=== PATIENT | female | born 1945 | race Two or more races ===

== ENCOUNTER → 2018-07-16 | Outpatient (CLI) | payer MEDICARE ==
[2015-09-06 14:53] VITALS: BP 133/60
[~2018-07-16] MED LIST: ARIP5TAB13 PO; ASCO500T3 PO; ASPI-482 PO; BUPR300T4 PO; CELE200C PO; CHOL500016 PO; CLOP75TA57 PO; CRESTOR20 MG PO; CRESTOR40 MG PO; CYAN10002 IM; DEXL60CA2 PO; DULO60CA6 PO; ESOM20CA PO; ESTR1TAB15 PO; FERR325T14 PO; FEXO180T81 PO; INSU100I13 SQ; LEVO150T5 PO; LISI2.5T PO; METF10007 PO; OMEG1CAP6 PO; PIOG30TA41 PO; RANI150T21 PO; TIZA4TAB PO; TRAZ-86 PO; [UNRECOGNIZED DRUG - CODE]; [UNRECOGNIZED DRUG - OTHER] PO; fiber con; one a day PO; tylenol pm PO
--- NOTE | 2018-07-16 15:13 | RAD ---
CT chest without contrast dated 07/16/2018. No comparison available. CLINICAL INDICATION: Weight loss and dysphagia. TECHNIQUE: Contiguous axial imaging the chest performed without the administration of intravenous contrast. One or more of the following individualized dose reduction techniques were utilized for this examination: 1. Automated exposure control 2. Adjustment of the mA and/or kV according to patient size 3. Use of iterative reconstruction technique. FINDINGS: There is diffuse bronchial wall thickening. Mild to moderate upper zone predominant emphysema. Biapical linear scarring. There is a noncalcified pulmonary nodule in the right upper lobe on image 17 measures 7 mm in size. There is also a noncalcified pulmonary nodule in the medial aspect of the left upper lobe on image 24 that measures 8 mm. Additional soft tissue mass within the medial aspect of the left upper lobe on image 35 measures 2 cm. Noncalcified nodule in the right middle lobe on image 73 measures 4 mm. Heart size within normal limits. Extensive coronary calcifications. Small pericardial effusion. Borderline enlarged subcarinal lymph node measuring 8 mm short axis. There is a possible enlarged right paratracheal lymph node measuring 12 mm short axis. Thyroid gland unremarkable. No definite hilar or axillary adenopathy. Limited images of upper abdomen unremarkable. Slight nodular fullness of the left adrenal gland. No acute bony abnormality. Multilevel spondylosis. IMPRESSION: 1. Soft tissue mass of the medial aspect of the left upper lobe measuring up to 2 cms in size, indeterminate. This could be related to primary bronchogenic malignancy. Suggest PET CT for better evaluation. 2. Additional noncalcified pulmonary nodules in the left upper lobe and right upper lobe and right middle lobe, indeterminate. 3. Mild mediastinal lymphadenopathy. 4. Emphysema. 5. Coronary artery calcifications. 6. Slight nodular fullness of the left adrenal gland. Electronically signed by: Rickie Cervantes MD (07/16/2018 3:10 PM) [facility]
== END | disposition home or self-care (01) ==
LOC: CT 10:05
PROVIDERS: ATTEND Internal Medicine Gastroenterology
DX: J43.8 Other emphysema (principal); J98.4 Other disorders of lung; I31.3 Pericardial effusion (noninflammatory); I25.10 Atherosclerotic heart disease of native coronary artery without angina pectoris; R91.1 Solitary pulmonary nodule; R59.0 Localized enlarged lymph nodes
CPT/HCPCS: 71250

== ENCOUNTER 2018-08-11 19:38 | Emergency (ER) | payer MEDICARE ==
[~2018-08-11] VITALS: Ht 152.4 cm; Wt 33.4 kg
[~2018-08-11 19:38] MED LIST changes: -ARIP5TAB13 PO; -BUPR300T4 PO; -CELE200C PO; -CRESTOR20 MG PO; -DEXL60CA2 PO; -DULO60CA6 PO; -ESOM20CA PO; -ESTR1TAB15 PO; -FEXO180T81 PO; -LEVO150T5 PO; -RANI150T21 PO; -TIZA4TAB PO; -TRAZ-86 PO; -[UNRECOGNIZED DRUG - CODE]; -[UNRECOGNIZED DRUG - OTHER] PO; -fiber con; -one a day PO; -tylenol pm PO
[2018-08-11] MEDS ORDERED: GLUCAGON,HUMAN RECOMBINANT 1 MG KIT. IV STA (20:03)
[2018-08-11] MEDS ORDERED: NITROGLYCERIN SUBLINGUAL 0.4 MG BOTTLE OF 25. SL ONE (20:15)
[2018-08-11 20:39] LABS: BASO # 0.1 x10^3/uL (0.0-0.2); BASO % 1 % (0-3); EOS % 1 % (0-3); HEMATOCRIT 41.4 % (36.0-47.0); HEMOGLOBIN 13.8 g/dL (12.0-15.5); LYMPH # 0.9 x10^3/uL (1.0-4.8); LYMPH % 16 % (24-48); MEAN CORPUSCULAR HEMOGLOBIN 30 pg (25-35); MEAN CORPUSCULAR HGB CONC 33 g/dL (31-37); MEAN CORPUSCULAR VOLUME 90 fL (79-100); MONO # 0.4 x10^3/uL (0.0-1.1); MONO % 6 % (0-9); NEUT # 4.5 x10^3uL (1.8-7.7); NEUT % 76 % (31-73); PLATELET COUNT 305 x10^3/uL (140-400); RED BLOOD COUNT 4.59 x10^6/uL (3.50-5.40); RED CELL DISTRIBUTION WIDTH 13.4 % (11.5-14.5); WHITE BLOOD COUNT 5.9 x10^3/uL (4.0-11.0)
[2018-08-11 20:49] LABS: ALBUMIN 3.6 g/dL (3.4-5.0); ALBUMIN/GLOBULIN RATIO 1.1 (1.0-1.7); CALCIUM 9.3 mg/dL (8.5-10.1); CREATININE 0.7 mg/dL (0.6-1.0); POTASSIUM 3.2 mmol/L (3.5-5.1); TOTAL BILIRUBIN 0.6 mg/dL (0.2-1.0); TOTAL PROTEIN 6.8 g/dL (6.4-8.2)
--- NOTE | 2018-08-11 21:28 | PHYS DOC ---
Past History Past Medical History: Diabetes, High Cholesterol Past Surgical History: No Surgical History Alcohol Use: None Drug Use: None Adult General Chief Complaint Chief Complaint: DIFFICULTY SWALLOWING [facility] HPI Patient is a 72-year-old female who presents with complaint of 2 day history of difficulty swallowing. Patient states that she has a history of esophageal stricture and had dilation of the stricture in the past. She states that since yesterday she has been having difficulty with swallowing, feeling like there something stuck in her esophagus again. She states that she's not been able to really eat anything and states that every time she tries to drink water, it comes right back up. She denies any chest pain or shortness of breath. Patient states that symptoms are very similar to when she has had esophageal food bolus in the past.[] Review of Systems Review of Systems Constitutional: Denies fever or chills [] Respiratory: Denies cough or shortness of breath [] Cardiovascular: No additional information not addressed in HPI [] GI: Denies abdominal pain [] Integument: Denies rash or skin lesions [] Neurologic: Denies headache, focal weakness or sensory changes [] All other systems were reviewed and found to be within normal limits, except as documented in this note. Current Medications Current Medications Current Medications Medications (Trade) Dose Ordered Sig/Emelyn Start Time Stop Time Status Last Admin Dose Admin Glucagon (Glucagen Kit) 1 mg 1X STAT 08/11/18 20:03 08/11/18 20:07 DC 08/11/18 20:48 1 MG Nitroglycerin (Nitrostat) 0.4 mg 1X ONCE 08/11/18 20:15 08/11/18 20:16 DC Allergies Allergies Allergies Coded Allergies Type Severity Reaction Last Updated Verified denosumab Allergy Severe 09/05/15 Yes sitagliptin Allergy Intermediate 03/08/14 Yes Sulfa (Sulfonamide Antibiotics) Allergy Unknown Nausea and Vomiting 03/07/14 No azithromycin Allergy Unknown Nausea and Vomiting 03/07/14 No Physical Exam Physical Exam Constitutional: Well developed, well nourished, no acute distress, non-toxic appearance. [] HENT: Normocephalic, atraumatic, bilateral external ears normal, oropharynx moist, no oral exudates, nose normal. [] Eyes: PERRLA, EOMI, conjunctiva normal, no discharge. [] Neck: Normal range of motion, no tenderness, supple, no stridor. [] Cardiovascular: Regular rate and rhythm[] Lungs & Thorax: Bilateral breath sounds clear to auscultation [] Abdomen: Bowel sounds normal, soft, no tenderness. [] Skin: Warm, dry, no erythema, no rash. [] Extremities: No tenderness, no cyanosis, no clubbing, ROM intact. [] Neurologic: Alert and oriented X 3, no focal deficits noted. [] Current Patient Data Vital Signs Vital Signs Date Time Temp Pulse Resp B/P (MAP) Pulse Ox O2 Delivery O2 Flow Rate FiO2 08/11/18 20:15 89 127/64 Lab Results Laboratory Tests Test 08/11/18 20:15 White Blood Count 5.9 x10^3/uL (4.0-11.0) Red Blood Count 4.59 x10^6/uL (3.50-5.40) Hemoglobin 13.8 g/dL (12.0-15.5) Hematocrit 41.4 % (36.0-47.0) Mean Corpuscular Volume 90 fL (79-100) Mean Corpuscular Hemoglobin 30 pg (25-35) Mean Corpuscular Hemoglobin Concent 33 g/dL (31-37) Red Cell Distribution Width 13.4 % (11.5-14.5) Platelet Count 305 x10^3/uL (140-400) Neutrophils (%) (Auto) 76 % (31-73) H Lymphocytes (%) (Auto) 16 % (24-48) L Monocytes (%) (Auto) 6 % (0-9) Eosinophils (%) (Auto) 1 % (0-3) Basophils (%) (Auto) 1 % (0-3) Neutrophils # (Auto) 4.5 x10^3uL (1.8-7.7) Lymphocytes # (Auto) 0.9 x10^3/uL (1.0-4.8) L Monocytes # (Auto) 0.4 x10^3/uL (0.0-1.1) Eosinophils # (Auto) 0.0 x10^3/uL (0.0-0.7) Basophils # (Auto) 0.1 x10^3/uL (0.0-0.2) Sodium Level 144 mmol/L (136-145) Potassium Level 3.2 mmol/L (3.5-5.1) L Chloride Level 103 mmol/L (98-107) Carbon Dioxide Level 27 mmol/L (21-32) Anion Gap 14 (6-14) Blood Urea Nitrogen 19 mg/dL (7-20) Creatinine 0.7 mg/dL (0.6-1.0) Estimated GFR (Cockcroft-Gault) 82.0 BUN/Creatinine Ratio 27 (6-20) H Glucose Level 152 mg/dL (70-99) H Calcium Level 9.3 mg/dL (8.5-10.1) Total Bilirubin 0.6 mg/dL (0.2-1.0) Aspartate Amino Transferase (AST) 12 U/L (15-37) L Alanine Aminotransferase (ALT) 20 U/L (14-59) Alkaline Phosphatase 85 U/L (46-116) Total Protein 6.8 g/dL (6.4-8.2) Albumin 3.6 g/dL (3.4-5.0) Albumin/Globulin Ratio 1.1 (1.0-1.7) EKG EKG [] Radiology/Procedures Radiology/Procedures [] Course & Med Decision Making Course & Med Decision Making Pertinent Labs and Imaging studies reviewed. (See chart for details) Patient moved to room upon arrival was evaluated by your medical staff and an IV was established and blood work drawn. Patient was given a dose of glucagon 1 mg IV along with a single dose of Nitrostat. Patient then given fluid to drink and has been able to swallow fluids without difficulty. Dragon Disclaimer Dragon Disclaimer This electronic medical record was generated, in whole or in part, using a voice recognition dictation system. Departure Departure: Impression: Primary Impression: Difficulty swallowing Disposition: 01 HOME, SELF-CARE Condition: STABLE Referrals: ZBIGNIEW VO (PCP) Patient Instructions: Esophageal Stricture Additional Instructions: Call to schedule appointment with your GI specialist first thing Monday morning. Problem Qualifiers Primary Impression: Difficulty swallowing Dysphagia type: unspecified Qualified Codes: R13.10 - Dysphagia, unspecified MACKENZIE CHRIS Jr. DO Aug 11, 2018 21:28
[2018-08-11 22:00] VITALS: BP 127/51
[2018-08-12] MEDS ORDERED: CRESTOR20 MG PO (06:13)
[2018-08-12] MEDS ORDERED: [UNRECOGNIZED DRUG - CODE] (06:13)
[2018-08-12] MEDS ORDERED: ARIP5TAB13 PO (06:18)
[2018-08-12] MEDS ORDERED: DULO60CA6 PO (06:18)
[2018-08-12] MEDS ORDERED: BUPR300T4 PO (06:18)
[2018-08-12] MEDS ORDERED: CELE200C PO (06:18)
[2018-08-12] MEDS ORDERED: LEVO150T5 PO (06:18)
[2018-08-12] MEDS ORDERED: DEXL60CA2 PO (06:23)
[2018-08-12] MEDS ORDERED: fiber con (06:23)
[2018-08-12] MEDS ORDERED: tylenol pm PO (06:23)
[2018-08-12] MEDS ORDERED: TIZA4TAB PO (06:23)
[2018-08-12] MEDS ORDERED: TRAZ-86 PO (06:23)
[2018-08-12] MEDS ORDERED: ESTR1TAB15 PO (06:23)
[2018-08-12] MEDS ORDERED: one a day PO (06:27)
[2018-08-12] MEDS ORDERED: [UNRECOGNIZED DRUG - OTHER] PO (06:27)
[2018-08-12] MEDS ORDERED: RANI-376 PO (06:27)
[2018-08-12] MEDS ORDERED: FEXO180T81 PO (06:27)
[2018-08-12] MEDS ORDERED: ESOM20CA PO (06:27)
== END 2018-08-11 22:05 | disposition home or self-care (01) ==
LOC: ER 19:38
DX: R13.10 Dysphagia, unspecified (principal); E11.9 Type 2 diabetes mellitus without complications; E78.00 Pure hypercholesterolemia, unspecified; Z88.1 Allergy status to other antibiotic agents; Z88.2 Allergy status to sulfonamides; Z88.8 Allergy status to other drugs, medicaments and biological substances
CPT/HCPCS: 36415; 80053; 85025; 96374; 99284; J1610

== ENCOUNTER 2018-09-14 11:30 | Emergency (ER) | payer MEDICARE ==
[~2018-09-14] VITALS: Ht 152.4 cm; Wt 33.5 kg
[~2018-09-14 11:30] MED LIST changes: +ARIP5TAB13 PO; +BUPR300T4 PO; +CELE200C PO; +CRESTOR20 MG PO; +DEXL60CA2 PO; +DULO60CA6 PO; +ESOM20CA PO; +ESTR1TAB15 PO; +FEXO180T81 PO; +LEVO150T5 PO; +RANI-376 PO; +TIZA4TAB PO; +TRAZ-86 PO; +[UNRECOGNIZED DRUG - CODE]; +[UNRECOGNIZED DRUG - OTHER] PO; +fiber con; +one a day PO; +tylenol pm PO
[2018-09-14] MEDS ORDERED: KETOROLAC 15 MG/ML VIAL. IV ONE (12:00)
[2018-09-14 12:48] LABS: BASO # 0.1 x10^3/uL (0.0-0.2); BASO % 1 % (0-3); EOS % 0 % (0-3); HEMATOCRIT 41.6 % (36.0-47.0); HEMOGLOBIN 13.4 g/dL (12.0-15.5); LYMPH # 0.8 x10^3/uL (1.0-4.8); LYMPH % 15 % (24-48); MEAN CORPUSCULAR HEMOGLOBIN 29 pg (25-35); MEAN CORPUSCULAR HGB CONC 32 g/dL (31-37); MEAN CORPUSCULAR VOLUME 91 fL (79-100); MONO # 0.3 x10^3/uL (0.0-1.1); MONO % 5 % (0-9); NEUT # 4.1 x10^3uL (1.8-7.7); NEUT % 79 % (31-73); PLATELET COUNT 376 x10^3/uL (140-400); RED BLOOD COUNT 4.58 x10^6/uL (3.50-5.40); RED CELL DISTRIBUTION WIDTH 14.3 % (11.5-14.5); WHITE BLOOD COUNT 5.2 x10^3/uL (4.0-11.0)
[2018-09-14 12:55] LABS: ALBUMIN 3.4 g/dL (3.4-5.0); ALBUMIN/GLOBULIN RATIO 0.8 (1.0-1.7); CALCIUM 9.2 mg/dL (8.5-10.1); CREATININE 0.5 mg/dL (0.6-1.0); GFR 120.6; MAGNESIUM 1.8 mg/dL (1.8-2.4); POTASSIUM 3.4 mmol/L (3.5-5.1); TOTAL BILIRUBIN 0.5 mg/dL (0.2-1.0); TOTAL PROTEIN 7.5 g/dL (6.4-8.2)
--- NOTE | 2018-09-14 12:55 | RAD ---
RIBS LEFT AND PA CHEST History: Chest wall pain Comparison: July 16, [address], no previous chest radiograph available Findings: Single view of the chest and 3 additional views left ribs are submitted. There is no lobar consolidation, pleural fluid, pneumothorax. Heart size is stable. There is atherosclerotic calcification near aortic arch. No displaced left rib fracture is identified by radiographs. There is mild reverse S-shaped curvature of the thoracolumbar spine. Impression: 1. No acute radiographic abnormality is identified. Electronically signed by: Marcel Harrison MD (09/14/2018 12:52 PM) [facility]
[2018-09-14] MEDS ORDERED: HYDR15SO6 PO (13:35)
[2018-09-14] MEDS ORDERED: IBUP100O25 PO (13:35)
--- NOTE | 2018-09-14 13:36 | PHYS DOC ---
Past History Past Medical History: Diabetes, GERD, Other Past Surgical History: Other Alcohol Use: None Drug Use: None Adult General Chief Complaint Chief Complaint: CHEST PAIN HPI HPI Patient is a 73-year-old female who presents with complaint of chest discomfort on the left upper chest. Patient states that pain had started 2 days ago and has progressively gotten worse. She rates pain at a 7 to an 8 out of 10. She denies any nausea, vomiting or diaphoresis. She states that pain is worsened with movements. She denies any cough or wheezing. She also denies any fever. Patient states that nothing is improving her symptoms.[] Review of Systems Review of Systems Constitutional: Denies fever or chills [] Respiratory: Denies cough or shortness of breath [] Cardiovascular: No additional information not addressed in HPI [] GI: Denies abdominal pain, nausea, vomiting or diarrhea [] Musculoskeletal: Denies back pain or joint pain [] Integument: Denies rash or skin lesions [] All other systems were reviewed and found to be within normal limits, except as documented in this note. Current Medications Current Medications Current Medications Medications (Trade) Dose Ordered Sig/Emelyn Start Time Stop Time Status Last Admin Dose Admin Ketorolac Tromethamine (Toradol 15mg Vial) 15 mg 1X ONCE 09/14/18 12:00 09/14/18 12:04 DC 09/14/18 12:26 15 MG Allergies Allergies Allergies Coded Allergies Type Severity Reaction Last Updated Verified denosumab Allergy Severe 09/14/18 Yes sitagliptin Allergy Intermediate 09/14/18 Yes Sulfa (Sulfonamide Antibiotics) Allergy Unknown Nausea and Vomiting 09/14/18 No azithromycin Allergy Unknown Nausea and Vomiting 09/14/18 No clarithromycin Allergy Unknown Itching 09/14/18 Yes Physical Exam Physical Exam Constitutional: Well developed, well nourished, no acute distress, non-toxic appearance. [] HENT: Normocephalic, atraumatic, bilateral external ears normal, oropharynx moist, no oral exudates, nose normal. [] Eyes: PERRLA, EOMI, conjunctiva normal, no discharge. [] Neck: Normal range of motion, no tenderness, supple, no stridor. [] Cardiovascular: Regular rate and rhythm[] Lungs & Thorax: Bilateral breath sounds clear to auscultation [] Abdomen: Bowel sounds normal, soft, no tenderness. [] Skin: Warm, dry, no erythema, no rash. [] Extremities: No tenderness, no cyanosis, no clubbing, ROM intact. [] Neurologic: Alert and oriented X 3, no focal deficits noted. [] Current Patient Data Vital Signs Vital Signs Date Time Temp Pulse Resp B/P (MAP) Pulse Ox O2 Delivery O2 Flow Rate FiO2 09/14/18 11:37 98.6 97 18 96 Room Air Lab Results Laboratory Tests Test 09/14/18 12:22 White Blood Count 5.2 x10^3/uL (4.0-11.0) Red Blood Count 4.58 x10^6/uL (3.50-5.40) Hemoglobin 13.4 g/dL (12.0-15.5) Hematocrit 41.6 % (36.0-47.0) Mean Corpuscular Volume 91 fL (79-100) Mean Corpuscular Hemoglobin 29 pg (25-35) Mean Corpuscular Hemoglobin Concent 32 g/dL (31-37) Red Cell Distribution Width 14.3 % (11.5-14.5) Platelet Count 376 x10^3/uL (140-400) Neutrophils (%) (Auto) 79 % (31-73) H Lymphocytes (%) (Auto) 15 % (24-48) L Monocytes (%) (Auto) 5 % (0-9) Eosinophils (%) (Auto) 0 % (0-3) Basophils (%) (Auto) 1 % (0-3) Neutrophils # (Auto) 4.1 x10^3uL (1.8-7.7) Lymphocytes # (Auto) 0.8 x10^3/uL (1.0-4.8) L Monocytes # (Auto) 0.3 x10^3/uL (0.0-1.1) Eosinophils # (Auto) 0.0 x10^3/uL (0.0-0.7) Basophils # (Auto) 0.1 x10^3/uL (0.0-0.2) Sodium Level 143 mmol/L (136-145) Potassium Level 3.4 mmol/L (3.5-5.1) L Chloride Level 103 mmol/L (98-107) Carbon Dioxide Level 30 mmol/L (21-32) Anion Gap 10 (6-14) Blood Urea Nitrogen 10 mg/dL (7-20) Creatinine 0.5 mg/dL (0.6-1.0) L Estimated GFR (Cockcroft-Gault) 120.6 BUN/Creatinine Ratio 20 (6-20) Glucose Level 143 mg/dL (70-99) H Calcium Level 9.2 mg/dL (8.5-10.1) Magnesium Level 1.8 mg/dL (1.8-2.4) Total Bilirubin 0.5 mg/dL (0.2-1.0) Aspartate Amino Transferase (AST) 15 U/L (15-37) Alanine Aminotransferase (ALT) 23 U/L (14-59) Alkaline Phosphatase 99 U/L (46-116) Troponin I Quantitative < 0.017 ng/mL (0-0.055) Total Protein 7.5 g/dL (6.4-8.2) Albumin 3.4 g/dL (3.4-5.0) Albumin/Globulin Ratio 0.8 (1.0-1.7) L EKG EKG EKG demonstrates sinus rhythm with rate of 93.[] Radiology/Procedures Radiology/Procedures [] Impressions: PROCEDURE: RIBS LEFT AND PA CHEST RIBS LEFT AND PA CHEST History: Chest wall pain Comparison: July 16, [address], no previous chest radiograph available Findings: Single view of the chest and 3 additional views left ribs are submitted. There is no lobar consolidation, pleural fluid, pneumothorax. Heart size is stable. There is atherosclerotic calcification near aortic arch. No displaced left rib fracture is identified by radiographs. There is mild reverse S-shaped curvature of the thoracolumbar spine. Impression: 1. No acute radiographic abnormality is identified. Electronically signed by: Marcel Harrison MD (09/14/2018 12:52 PM) [facility] Course & Med Decision Making Course & Med Decision Making Pertinent Labs and Imaging studies reviewed. (See chart for details) [] Dragon Disclaimer Dragon Disclaimer This electronic medical record was generated, in whole or in part, using a voice recognition dictation system. Departure Departure: Impression: Primary Impression: Chest wall pain Disposition: 01 HOME, SELF-CARE Condition: STABLE Referrals: ZBIGNIEW VO (PCP) Patient Instructions: Chest Wall Pain Scripts Ibuprofen (IBUPROFEN) 100 Mg/5 Ml Oral.susp 5 ML PO PRN Q6HRS PRN for PAIN, #120 ML Prov: MACKENZIE CHRIS Jr. DO 09/14/18 Hydrocodone Bit/Acetaminophen (HYDROCODONE-APAP 7.5-325/15 SOLN ) 15 Ml Solution 5-10 ML PO PRN Q6HRS PRN for PAIN, #120 ML 0 Refills Prov: MACKENZIE CHRIS Jr. DO 09/14/18 MACKENZIE CHRIS Jr. DO Sep 14, 2018 13:35
[2018-09-14 14:04] VITALS: BP 171/84
== END 2018-09-14 14:10 | disposition home or self-care (01) ==
LOC: ER 11:30
DX: R07.89 Other chest pain (principal); E11.9 Type 2 diabetes mellitus without complications; K21.9 Gastro-esophageal reflux disease without esophagitis; Z88.2 Allergy status to sulfonamides; Z88.1 Allergy status to other antibiotic agents; Z88.8 Allergy status to other drugs, medicaments and biological substances
CPT/HCPCS: 36415; 71101; 80053; 83735; 84484; 85025; 93005; 96374; 99285; J1885

== ENCOUNTER 2018-11-14 05:46 | Emergency (ER) | payer MEDICARE ==
[~2018-11-14] VITALS: Ht 152.4 cm; Wt 33.5 kg
[~2018-11-14 05:46] MED LIST changes: +HYDR15SO6 PO; +IBUP100O25 PO; -TIZA4TAB PO; +TIZA4TAB2 PO
--- NOTE | 2018-11-14 06:43 | PHYS DOC ---
Past History Past Medical History: Diabetes, GERD, Other Past Surgical History: Other Alcohol Use: None Drug Use: None Adult General Chief Complaint Chief Complaint: SHORTNESS OF BREATH HPI HPI 73-year-old female with known history of lung cancer, status post radiation treatments �10 at [facility]. Patient has as well had GI stricture with stent placed per GI approximate one month ago. She complains of cough, phlegm production, difficulty swallowing. Patient was seen by hematology/oncology on Monday for follow-up. and her both state over the weekend she's had worsening pain and difficulty swallowing. She is cachectic in nature however this is likely chronic. She denies any nausea at the time. She states she takes pain medications every 6 hours as needed however is worried about getting depended upon pain medications. Review of Systems Review of Systems Constitutional: Denies fever or chills [] Respiratory: Denies cough or shortness of breath [] Cardiovascular: No additional information not addressed in HPI [] GI: Denies abdominal pain, nausea, vomiting, bloody stools or diarrhea, pain with swallowing Musculoskeletal: Denies back pain or joint pain [] Integument: Denies rash or skin lesions [] Neurologic: Denies headache, focal weakness or sensory changes [] All other systems were reviewed and found to be within normal limits, except as documented in this note. Current Medications Current Medications Current Medications Medications (Trade) Dose Ordered Sig/Emelyn Start Time Stop Time Status Last Admin Dose Admin Acetaminophen/ Hydrocodone Bitart (Lortab 7.5-325/ 15ml Oral Solution) 15 ml 1X ONCE 11/14/18 06:45 11/14/18 06:46 UNV Sodium Chloride 1,000 ml @ 1,000 mls/hr 1X ONCE 11/14/18 06:30 11/14/18 07:29 UNV Allergies Allergies Allergies Coded Allergies Type Severity Reaction Last Updated Verified denosumab Allergy Severe 09/14/18 Yes sitagliptin Allergy Intermediate 09/14/18 Yes Sulfa (Sulfonamide Antibiotics) Allergy Unknown Nausea and Vomiting 09/14/18 No azithromycin Allergy Unknown Nausea and Vomiting 09/14/18 No clarithromycin Allergy Unknown Itching 09/14/18 Yes Physical Exam Physical Exam Constitutional: Ill-appearing, cachectic, nontoxic HENT: Normocephalic, atraumatic, bilateral external ears normal, oropharynx dry, no oral exudates, nose normal. [] Eyes: PERRLA, EOMI, conjunctiva normal, no discharge. [] Neck: Normal range of motion, no tenderness, supple, no stridor. [] Cardiovascular:Heart rate regular rhythm, no murmur [] Lungs & Thorax: Bilateral breath sounds clear to auscultation [] Abdomen: Bowel sounds normal, soft, no tenderness, no masses, no pulsatile masses. [] Skin: Warm, dry, no erythema, no rash. [] Extremities: No tenderness, no cyanosis, no clubbing, ROM intact, no edema. [] Neurologic: Alert and oriented X 3, no focal deficits noted. [] Psychologic: Affect normal, judgement normal, mood normal. [] Current Patient Data Vital Signs Vital Signs Date Time Temp Pulse Resp B/P (MAP) Pulse Ox O2 Delivery O2 Flow Rate FiO2 11/14/18 05:50 98.9 90 16 95 Room Air Lab Results Laboratory Tests Test 11/14/18 06:10 White Blood Count 5.0 x10^3/uL Red Blood Count 4.17 x10^6/uL Hemoglobin 12.3 g/dL Hematocrit 37.2 % Mean Corpuscular Volume 89 fL Mean Corpuscular Hemoglobin 30 pg Mean Corpuscular Hemoglobin Concent 33 g/dL Red Cell Distribution Width 15.4 % Platelet Count 409 x10^3/uL Neutrophils (%) (Auto) 82 % Lymphocytes (%) (Auto) 10 % Monocytes (%) (Auto) 7 % Eosinophils (%) (Auto) 0 % Basophils (%) (Auto) 0 % Neutrophils # (Auto) 4.1 x10^3uL Lymphocytes # (Auto) 0.5 x10^3/uL Monocytes # (Auto) 0.4 x10^3/uL Eosinophils # (Auto) 0.0 x10^3/uL Basophils # (Auto) 0.0 x10^3/uL Sodium Level 139 mmol/L Potassium Level 3.5 mmol/L Chloride Level 100 mmol/L Carbon Dioxide Level 31 mmol/L Anion Gap 8 Blood Urea Nitrogen 10 mg/dL Creatinine 0.6 mg/dL Estimated GFR (Cockcroft-Gault) 97.7 BUN/Creatinine Ratio 17 Glucose Level 104 mg/dL Calcium Level 9.1 mg/dL Total Bilirubin 0.4 mg/dL Aspartate Amino Transf (AST/SGOT) 15 U/L Alanine Aminotransferase (ALT/SGPT) 15 U/L Alkaline Phosphatase 119 U/L Troponin I Quantitative < 0.017 ng/mL Total Protein 7.3 g/dL Albumin 2.8 g/dL Albumin/Globulin Ratio 0.6 Lipase 37 U/L Current Medications Medications (Trade) Dose Ordered Sig/Emelyn Route PRN Reason Start Time Stop Time Status Last Admin Dose Admin Sodium Chloride 1,000 ml @ 1,000 mls/hr 1X ONCE IV 11/14/18 06:45 11/14/18 07:44 DC 11/14/18 06:41 Acetaminophen/ Hydrocodone Bitart (Lortab 7.5-325/ 15ml Oral Solution) 15 ml 1X ONCE PO 11/14/18 06:45 11/14/18 06:46 DC 11/14/18 06:41 EKG EKG EKG reviewed 0 552 sinus tachycardia, 102 right bundle branch block appreciated previous EKG compared September 2018 similar findings. No acute ST or T wave change.[] Radiology/Procedures Radiology/Procedures [address] [address] IMAGING REPORT Signed PATIENT: BLANQUITA MERCADO ACCOUNT: [id number] : 1945 LOCATION: ER AGE: 73 SEX: F EXAM STATUS: REG ER ORD. PHYSICIAN: LAUREN WALSH MD REASON: Cough PROCEDURE: CHEST AP ONLY CHEST AP ONLY INDICATION: Cough. COMPARISON STUDY: 09/14/2018. FINDINGS: Lungs: Hyperexpanded lung volume. Ill-defined right basilar opacity. The tracheobronchial tree and hilar structures are normal. Pleura: No pleural effusion or pneumothorax. Heart and Mediastinum: Normal cardiac size. Sclerotic thoracic aorta. Esophageal stent IMPRESSION: Ill-defined right basilar opacities, which may represent infection or aspiration. Electronically signed by: Dylon Duff MD (11/14/2018 6:56 AM) [facility] DICTATED AND SIGNED BY: DYLON DUFF MD DATE: 11/14/18 0656 CC: LAUREN WALSH MD; [facility] VO ~ [] Course & Med Decision Making Course & Med Decision Making Pertinent Labs and Imaging studies reviewed. (See chart for details) 73-year-old female with known history of lung cancer, status post radiation treatments �10 at [facility]. Patient has as well had GI strictu re with stent placed per GI approximate one month ago. She complains of cough, phlegm production, difficulty swallowing. Patient was seen by hematology/oncology on Monday for follow-up. and her both state over the weekend she's had worsening pain and difficulty swallowing. She is cachectic in nature however this is likely chronic. She denies any nausea at the time. She states she takes pain medications every 6 hours as needed however is worried about getting depended upon pain medications. Patient provided with by mouth pain medications 15 mL as of 7.5/325 Lortab. Labs and imaging obtained. IV fluids 1 L bolus provided. Imaging reviewed with evidence of developing right lower lobe consolidation concerning for aspiration versus pneumonia. Antibiotics provided, Augmentin 400 mg per 5 mL's, 11 ml by mouth twice a day �10 days Dragon Disclaimer Dragon Disclaimer This electronic medical record was generated, in whole or in part, using a voice recognition dictation system. Departure Departure: Impression: Primary Impression: Pneumonia Additional Impressions: Type II diabetes mellitus Essential hypertension Disposition: HOME, SELF-CARE Condition: STABLE Referrals: [facility] VO (PCP) Patient Instructions: Aspiration Pneumonia, Aspiration Precautions Additional Instructions: Augmenting rx provided 400mg/5ml 11ml po BID x 10 days Tylenol/Motrin as needed for pain/fever Return to the ER with worsening symptoms, SOB, nausea/vomiting, altered mental status Problem Qualifiers Primary Impression: Pneumonia Pneumonia type: aspiration pneumonia Aspiration pneumonia type: unspecified Laterality: right Lung location: lower lobe of lung Qualified Codes: J69.0 - Pneumonitis due to inhalation of food and vomit Additional Impressions: Type II diabetes mellitus 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
[2018-11-14] MEDS ORDERED: HYDROcodon/APAP 7.5/325MG ORAL 15 ML SOLUTION PO ONE (06:45)
[2018-11-14] MEDS ORDERED: IV NORMAL SALINE 1,000ML 1,000 ML IV ONE (06:45)
--- NOTE | 2018-11-14 06:50 | EKG ---
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
[2018-11-14 06:58] LABS: ALBUMIN 2.8 g/dL (3.4-5.0); ALBUMIN/GLOBULIN RATIO 0.6 (1.0-1.7); CALCIUM 9.1 mg/dL (8.5-10.1); CREATININE 0.6 mg/dL (0.6-1.0); GFR 97.7; POTASSIUM 3.5 mmol/L (3.5-5.1); TOTAL BILIRUBIN 0.4 mg/dL (0.2-1.0); TOTAL PROTEIN 7.3 g/dL (6.4-8.2)
[2018-11-14 06:59] LABS: BASO % 0 % (0-3); EOS % 0 % (0-3); HEMATOCRIT 37.2 % (36.0-47.0); HEMOGLOBIN 12.3 g/dL (12.0-15.5); LYMPH # 0.5 x10^3/uL (1.0-4.8); LYMPH % 10 % (24-48); MEAN CORPUSCULAR HEMOGLOBIN 30 pg (25-35); MEAN CORPUSCULAR HGB CONC 33 g/dL (31-37); MEAN CORPUSCULAR VOLUME 89 fL (79-100); MONO # 0.4 x10^3/uL (0.0-1.1); MONO % 7 % (0-9); NEUT # 4.1 x10^3uL (1.8-7.7); NEUT % 82 % (31-73); PLATELET COUNT 409 x10^3/uL (140-400); RED BLOOD COUNT 4.17 x10^6/uL (3.50-5.40); RED CELL DISTRIBUTION WIDTH 15.4 % (11.5-14.5)
--- NOTE | 2018-11-14 06:59 | RAD ---
CHEST AP ONLY INDICATION: Cough. COMPARISON STUDY: 09/14/2018. FINDINGS: Lungs: Hyperexpanded lung volume. Ill-defined right basilar opacity. The tracheobronchial tree and hilar structures are normal. Pleura: No pleural effusion or pneumothorax. Heart and Mediastinum: Normal cardiac size. Sclerotic thoracic aorta. Esophageal stent IMPRESSION: Ill-defined right basilar opacities, which may represent infection or aspiration. Electronically signed by: Marcel Duff MD (11/14/2018 6:56 AM) [facility]
[2018-11-14 08:26] VITALS: BP 97/43
== END 2018-11-14 08:53 | disposition home or self-care (01) ==
LOC: ER 05:46
DX: J69.0 Pneumonitis due to inhalation of food and vomit (principal); E11.9 Type 2 diabetes mellitus without complications; I10 Essential (primary) hypertension; K21.9 Gastro-esophageal reflux disease without esophagitis; Z85.118 Personal history of other malignant neoplasm of bronchus and lung; Z88.1 Allergy status to other antibiotic agents; Z88.2 Allergy status to sulfonamides; Z88.8 Allergy status to other drugs, medicaments and biological substances
CPT/HCPCS: 36415; 71045; 80053; 83690; 84484; 85025; 93005; 99285-25; J7030

== ENCOUNTER 2018-11-17 22:51 | Inpatient (IN) | payer MEDICARE ==
[~2018-11-17] VITALS: Ht 144.8 cm; Wt 31.8 kg
[2018-11-17] MEDS ORDERED: POLY17PO5 PO (23:14)
[2018-11-17] MEDS ORDERED: AMOX600S19 PO (23:16)
--- NOTE | 2018-11-17 23:21 | PHYS DOC ---
Past History Past Medical History: Diabetes, GERD, Other Past Surgical History: Other Alcohol Use: None Drug Use: None Adult General Chief Complaint Chief Complaint: DYSPNEA/RESPIRATOY DISTRESS [facility] HPI Patient is a 73-year-old female who presents with complaint of cough and shortness of breath for the last few days. Patient was seen here on the with similar complaints and was diagnosed with pneumonia. Patient indicates that she has not been able to sleep due to her cough. She also indicates that she has had decreased appetite and hasn't eaten today. She does complain of pain just below her left breast in the chest wall region. She is not sure whether or not she is been running a fever. She denies any vomiting or diarrhea.[] Review of Systems Review of Systems Constitutional: Denies fever or chills [] Respiratory: Positive cough and shortness of breath [] Cardiovascular: No additional information not addressed in HPI [] GI: Denies abdominal pain, nausea, vomiting or diarrhea [] Integument: Denies rash or skin lesions [] Neurologic: Denies headache, focal weakness or sensory changes [] All other systems were reviewed and found to be within normal limits, except as documented in this note. Allergies Allergies Allergies Coded Allergies Type Severity Reaction Last Updated Verified denosumab Allergy Severe 11/17/18 Yes clarithromycin Allergy Intermediate Itching 11/17/18 Yes sitagliptin Allergy Intermediate 11/17/18 Yes Sulfa (Sulfonamide Antibiotics) Allergy Mild Nausea and Vomiting 11/17/18 No azithromycin Allergy Mild Nausea and Vomiting 11/17/18 No Physical Exam Physical Exam Constitutional: Well developed, well nourished, no acute distress, non-toxic appearance. [] HENT: Normocephalic, atraumatic, bilateral external ears normal, oropharynx dry, no oral exudates, nose normal. [] Eyes: PERRLA, EOMI, conjunctiva normal, no discharge. [] Neck: Normal range of motion, no tenderness, supple, no stridor. [] Cardiovascular:Heart rate regular rhythm, no murmur [] Lungs & Thorax: Fine rhonchi are noted in the lung bases to auscultation [] Abdomen: Bowel sounds normal, soft, no tenderness. [] Skin: Warm, dry, no erythema, no rash. [] Extremities: No tenderness, no cyanosis, no clubbing, ROM intact. [] Neurologic: Alert and oriented X 3, no focal deficits noted. [] EKG EKG [] Radiology/Procedures Radiology/Procedures [] Impressions: PROCEDURE: PORTABLE CHEST 1V Single view chest dated 11/17/2018. Comparison made to 11/14/2018. CLINICAL INDICATION: Dyspnea. History of lung cancer. FINDINGS: Single upright portable exam performed. Heart and mediastinal contours are stable. There is a esophageal stent in place, unchanged. Prominent reticular nodular markings throughout both lungs, similar to prior exam. No consolidation or pleural effusion. No pneumothorax. Nodular lesion at the perihilar region on the left is unchanged. IMPRESSION: No significant interval change compared to 11/14/2018. Electronically signed by: Rickie Cervantes MD (11/17/2018 11:42 PM) [facility] [place] Course & Med Decision Making Course & Med Decision Making Pertinent Labs and Imaging studies reviewed. (See chart for details) [] Dragon Disclaimer Dragon Disclaimer This electronic medical record was generated, in whole or in part, using a voice recognition dictation system. Departure Departure: Impression: Primary Impression: Pneumonia Additional Impressions: Shortness of breath Weight loss, abnormal Generalized weakness Disposition: ADMITTED INPATIENT Admitting Physician: Julita Whitt Condition: IMPROVED Referrals: [facility] (PCP) Problem Qualifiers Primary Impression: Pneumonia Pneumonia type: due to unspecified organism Laterality: unspecified laterality Lung location: unspecified part of lung Qualified Codes: J18.9 - Pneumonia, unspecified organism MACKENZIE CHRIS Jr. DO Nov 17, 2018 23:21
[2018-11-17] MEDS: MORPHINE SULFATE 2 MG/ML DISP.SYRIN. IV/SQ PRN (23:43)
--- NOTE | 2018-11-17 23:44 | RAD ---
Single view chest dated 11/17/2018. Comparison made to 11/14/2018. CLINICAL INDICATION: Dyspnea. History of lung cancer. FINDINGS: Single upright portable exam performed. Heart and mediastinal contours are stable. There is a esophageal stent in place, unchanged. Prominent reticular nodular markings throughout both lungs, similar to prior exam. No consolidation or pleural effusion. No pneumothorax. Nodular lesion at the perihilar region on the left is unchanged. IMPRESSION: No significant interval change compared to 11/14/2018. Electronically signed by: Rickie Cervantes MD (11/17/2018 11:42 PM) [place] [id number]
[2018-11-18 00:09] LABS: BASO % 1 % (0-3); EOS % 1 % (0-3); HEMATOCRIT 33.7 % (36.0-47.0); HEMOGLOBIN 11.3 g/dL (12.0-15.5); LYMPH # 0.4 x10^3/uL (1.0-4.8); LYMPH % 9 % (24-48); MEAN CORPUSCULAR HEMOGLOBIN 30 pg (25-35); MEAN CORPUSCULAR HGB CONC 33 g/dL (31-37); MEAN CORPUSCULAR VOLUME 89 fL (79-100); MONO # 0.4 x10^3/uL (0.0-1.1); MONO % 9 % (0-9); NEUT # 3.5 x10^3uL (1.8-7.7); NEUT % 80 % (31-73); PLATELET COUNT 389 x10^3/uL (140-400); RED BLOOD COUNT 3.78 x10^6/uL (3.50-5.40); RED CELL DISTRIBUTION WIDTH 15.8 % (11.5-14.5); WHITE BLOOD COUNT 4.4 x10^3/uL (4.0-11.0)
[2018-11-18 00:23] LABS: ALBUMIN 2.7 g/dL (3.4-5.0); ALBUMIN/GLOBULIN RATIO 0.7 (1.0-1.7); CALCIUM 8.8 mg/dL (8.5-10.1); CREATININE 0.5 mg/dL (0.6-1.0); GFR 120.6; TOTAL BILIRUBIN 0.5 mg/dL (0.2-1.0); TOTAL PROTEIN 6.8 g/dL (6.4-8.2)
[2018-11-18 00:28] LABS: INFLUENZA A PATIENT NEGATIVE (NEGATIVE); INFLUENZA B PATIENT NEGATIVE (NEGATIVE)
[2018-11-18] MEDS ORDERED: ONDANSETRON PF 4 MG/2 ML VIAL. IV PRN (00:45)
[2018-11-18] MEDS ORDERED: IV NORMAL SALINE 1,000ML 1,000 ML IV SCH (00:45)
[2018-11-18] MEDS ORDERED: ACETAMINOPHEN 325 MG TABLET PO PRN (00:45)
[2018-11-18] MEDS ORDERED: ALBUTEROL SULFATE 2.5 MG/3 ML NEBU. NEB ONE (00:45)
[2018-11-18] MEDS ORDERED: POTASSIUM CHLORIDE 20 MEQ PACKET. PO ONE (01:00)
[2018-11-18] MEDS: MORPHINE SULFATE 2 MG/ML DISP.SYRIN. IV/SQ PRN (01:17)
[2018-11-18 01:42] VITALS: BP 87/50
[2018-11-18] MEDS ORDERED: BENZOCAINE/MENTHOL LOZNGE 18'S BOX. PO PRN (03:30)
[2018-11-18 05:10] VITALS: BP 106/53
[2018-11-18] MEDS: IPRATRPIUM/ALBUTEROL 0.5/2.5MG 3 ML NEBU. NEB SCH ×4 (05:34→20:53)
[2018-11-18] MEDS: POTASSIUM CL 40MEQ IN 0.9%NACL 1,000 ML IV SCH (08:24)
[2018-11-18 11:07] VITALS: BP 80/40
[2018-11-18 15:35] VITALS: BP 108/53
--- NOTE | 2018-11-18 16:51 | HP ---
ADMIT DATE: 11/18/2018 HISTORY OF PRESENT ILLNESS: The patient is a 73-year-old female patient who came to the Emergency Room with a complaint of cough and shortness of breath for the last few days. She apparently was seen in the Emergency Room of [facility] on the with similar complaints and was diagnosed with pneumonia. She indicates that she has not been able to sleep due to her cough. She also indicated that she has decreased appetite and has not eaten. She does complain of pain just below her left breast in the chest wall region. She is not sure whether or not she has been running fever. She denies any vomiting or diarrhea. She apparently was evaluated in the Emergency Room and her lab work showed that she has normochromic normocytic anemia. Her white cell count is normal. Her chemistry showed that she has hypokalemia with a potassium of 3 only and severe hypoalbuminemia with serum albumin of only 2.7. Her influenza A and B were negative. Her chest x-ray showed the patient's heart and mediastinal contours are stable. There is an esophageal stent in place, unchanged. She has prominent reticular nodular markings throughout both lungs, similar to prior exam. No consolidation, pleural effusion, no pneumothorax. She has nodular lesion at the perihilar region on the left that is unchanged and the patient has recurrent episode of cough that usually starts at nighttime when she goes to bed and that she has sputum that is yellowish green. The patient was admitted and was started on IV Levaquin. PAST MEDICAL HISTORY: Significant for stage 4 lung cancer. She has esophageal stricture that was dilated 4 times and eventually underwent an esophageal stent placement. Other medical problems include type 2 diabetes. PAST SURGICAL HISTORY: Significant for bilateral cataract extraction, esophageal stricture dilatation x 4 and esophageal stent placement. ALLERGIES: She is allergic to SULFA, AZITHROMYCIN, CLARITHROMYCIN, SITAGLIPTIN as well as DENOSUMAB. MEDICATIONS: She is currently on following medications: She was on Augmentin, clavulanic acid twice a day, hydrocodone/APAP 15 mL solution takes 5-10 mL p.o. every 6 hours. She is on MiraLax 17 grams daily, cyanocobalamin 1000 mcg/mL intramuscular once every month. FAMILY HISTORY: She has 1 older brother who has diabetes, hypertension, chronic kidney disease, had 3 sisters, one older and 2 younger, all of them have diabetes. One of them has lung cancer. Her father at the age of 86 because of stomach cancer. Mother at age of 68 because of CVA and diabetes. SOCIAL HISTORY: She has 2 sons and 2 daughters from a previous marriage, with her , they have adopted a child. She is an ex-smoker, quit about a year ago. She used to smoke for almost 40 years. She does not drink alcohol or use recreational drugs. 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 PHYSICAL EXAMINATION: GENERAL: When I examined her this afternoon, she was sitting propped up in bed, in no apparent respiratory distress. She was pale, extremely cachectic. Her body mass index only 14.5 kilograms square meter. She has no jaundice or cyanosis. No lymphadenopathy or thyromegaly. No jugular venous distention. No limb edema. VITAL SIGNS: Her heart rate was 87, blood pressure was 106/53, temperature was 98.1, respiratory rate 20, and oxygen saturation was 98% on 2 liters of oxygen. HEAD, EYES, EARS, NOSE AND THROAT: Showed normocephalic, atraumatic. NECK: Supple. HEART: Showed normal first and second heart sounds. No gallop or murmur. CHEST: Clear to auscultation. No crepitation or rhonchi. She has decreased air entry on the left side, I could not really appreciate any rhonchi. ABDOMEN: Distended, soft, nontender. No guarding or rigidity. No organomegaly. All hernial orifice intact. Bowel sounds normal. NEUROLOGIC: She is awake, alert, responding appropriately. All cranial nerves intact. She moves extremities without difficulty; however, she has marked muscle wasting and weakness. She weighs only 30 kilograms. LABORATORY DATA: Showed a white cell count of 4400, hemoglobin 11, hematocrit 33, MCV 89 and platelet count of 389,000. Her serum sodium was 140, potassium 3, chloride 100, bicarbonate 31, anion gap of 9, BUN 9, creatinine 0.5, estimated GFR was 120 mL per minute. Her glucose 162, calcium was 8.8. Total bilirubin, AST, ALT, alkaline phosphatase were normal. Total protein was 6.8, albumin was 2.7. Her influenza A and B were negative. Her chest x-ray showed that the patient has prominent reticular nodular markings throughout both lungs, similar to prior exam. No consolidation, pleural effusion or pneumothorax. She has nodular lesion at the perihilar region on the left that is unchanged. ASSESSMENT: In summary, this is a 73-year-old female patient who came in with recurrent bouts of cough with yellowish sputum together with shortness of breath. She has stage 4 lung cancer, esophageal stricture requiring stent placement. She has also type 2 diabetes mellitus. She apparently was treated with radiation therapy. She received 10 sessions of radiation. She has also hypokalemia. PLAN: My plan is to replenish her potassium. Continue with nebulized treatment. Continue with the pain management. She is obviously a very difficult management. I will offer Codeine, Tylenol No. 3 at night time to suppress the cough so that she can sleep. Meanwhile, we will continue with IV antibiotic in the form of Levaquin and continue with albuterol and Atrovent. RUTH PINEDA MD DR: ANTONY/charo JOB#: [id number] / [id number]
[2018-11-18 20:06] VITALS: BP 92/53
[2018-11-18] MEDS: ACETAMINOPHEN/CODEINE 300/30MG TABLET PO PRN (20:59)
[2018-11-18] MEDS: INSULIN GLARGINE SYRINGE. SQ SCH (22:45)
[2018-11-18 23:00] VITALS: BP 108/57
[2018-11-19 00:01] VITALS: BP 88/48
[2018-11-19] MEDS: POTASSIUM CL 40MEQ IN 0.9%NACL 1,000 ML IV SCH ×3 (00:02→23:11)
[2018-11-19] MEDS: IPRATRPIUM/ALBUTEROL 0.5/2.5MG 3 ML NEBU. NEB SCH (05:25)
[2018-11-19 05:26] VITALS: BP 116/64
[2018-11-19] MEDS: ACETAMINOPHEN/CODEINE 300/30MG TABLET PO PRN (06:14)
[2018-11-19 06:48] LABS: BASO # 0.1 x10^3/uL (0.0-0.2); BASO % 1 % (0-3); EOS % 0 % (0-3); HEMATOCRIT 33.6 % (36.0-47.0); LYMPH # 0.7 x10^3/uL (1.0-4.8); LYMPH % 12 % (24-48); MEAN CORPUSCULAR HEMOGLOBIN 29 pg (25-35); MEAN CORPUSCULAR HGB CONC 33 g/dL (31-37); MEAN CORPUSCULAR VOLUME 90 fL (79-100); MONO # 0.3 x10^3/uL (0.0-1.1); MONO % 6 % (0-9); NEUT # 4.7 x10^3uL (1.8-7.7); NEUT % 81 % (31-73); PLATELET COUNT 371 x10^3/uL (140-400); RED BLOOD COUNT 3.75 x10^6/uL (3.50-5.40); RED CELL DISTRIBUTION WIDTH 16.2 % (11.5-14.5); WHITE BLOOD COUNT 5.8 x10^3/uL (4.0-11.0)
[2018-11-19 07:07] LABS: ALBUMIN 2.6 g/dL (3.4-5.0); ALBUMIN/GLOBULIN RATIO 0.7 (1.0-1.7); CALCIUM 8.8 mg/dL (8.5-10.1); CREATININE 0.4 mg/dL (0.6-1.0); POTASSIUM 3.6 mmol/L (3.5-5.1); TOTAL BILIRUBIN 0.4 mg/dL (0.2-1.0); TOTAL PROTEIN 6.6 g/dL (6.4-8.2)
[2018-11-19] MEDS ORDERED: INSULIN GLARGINE SYRINGE. SQ SCH (09:00)
[2018-11-19] MEDS: INSULIN GLARGINE SYRINGE. SQ SCH ×2 (09:00→20:50)
[2018-11-19 11:20] VITALS: BP 110/63
[2018-11-19 14:55] VITALS: BP 106/63
[2018-11-19 19:00] VITALS: BP 118/65
[2018-11-19] MEDS: LACTOBACILLUS RHAMNOSUS GG 1 CAPSULE. PO SCH (20:48)
[2018-11-19] MEDS: methylPREDNISolone SOD SUCC PF 40 MG/ML VIAL. IV SCH (20:50)
--- NOTE | 2018-11-19 22:37 | PN ---
DATE: 11/19/2018 SUBJECTIVE: The patient is sitting at the edge of the bed, eating her lunch comfortably. Apparently, I attempted to start her on Tylenol No. 3 for cough suppressant, but did not work well and she responded much better to fentanyl injection. She has had no more cough and apparently she slept very well last night. PHYSICAL EXAMINATION: GENERAL: When I examined her, she looked pale, extremely cachectic, but no jaundice, cyanosis or thyromegaly. No jugular venous distention. No lower limb edema. VITAL SIGNS: Her heart rate was 88, blood pressure was 110/63, temperature was 98.6, respiratory rate was 18 and oxygen saturation was 95% on 2 liters of oxygen. HEAD, EYES, EARS, NOSE, AND THROAT: Showed normocephalic, atraumatic. NECK: Supple. HEART: Showed normal first and second heart sounds. No gallop or murmur. CHEST: Showed central trachea, equal bilateral expansion air entry, expansion with crepitation mostly in the left side. I could not appreciate any rhonchi. ABDOMEN: Scaphoid, soft, nontender. NEUROLOGIC: She is awake, alert, responding appropriately. All cranial nerves intact. She moves extremities without difficulty. Her intake was 1100, no output was recorded. LABORATORY DATA: Her lab work this morning showed a serum sodium 140, potassium 3.6, chloride 102, bicarbonate 29, anion gap of 9, BUN 3, creatinine 0.4, estimated GFR was 156 mL per minute. Her glucose 115, calcium was 8.8. Total bilirubin, AST, ALT, alkaline phosphatase were normal. Total protein was 6.6, albumin was 2.6. Her white cell count was 5800, hemoglobin 11, hematocrit 33, MCV 90, and platelet count of 371,000. Her influenza A and B were negative. ASSESSMENT: 1. Community-acquired pneumonia. 2. Chronic obstructive pulmonary disease exacerbation. 3. Stage 4 lung cancer. 4. Esophageal stricture requiring stent placement. 5. Type 2 diabetes mellitus. 6. Hypokalemia. Her potassium has actually improved from 3-3.6. PLAN: My plan is to continue with IV Levaquin. I will add Solu-Medrol together with bronchodilator and she remained stable, she can be discharged to home tomorrow. RUTH PINEDA MD DR: Stephan JOB#: [id number] / [id number]
[2018-11-19 23:00] VITALS: BP 131/80
[2018-11-20 05:00] VITALS: BP 132/75
[2018-11-20] MEDS: POTASSIUM CL 40MEQ IN 0.9%NACL 1,000 ML IV SCH (05:32)
[2018-11-20 06:29] LABS: CALCIUM 8.5 mg/dL (8.5-10.1); CREATININE 0.4 mg/dL (0.6-1.0); POTASSIUM 4.3 mmol/L (3.5-5.1)
[2018-11-20 06:40] LABS: HEMATOCRIT 33.6 % (36.0-47.0); RED BLOOD COUNT 3.75 x10^6/uL (3.50-5.40); RED CELL DISTRIBUTION WIDTH 15.9 % (11.5-14.5); WHITE BLOOD COUNT 4.1 x10^3/uL (4.0-11.0)
[2018-11-20] MEDS: methylPREDNISolone SOD SUCC PF 40 MG/ML VIAL. IV SCH (08:12)
[2018-11-20] MEDS: LACTOBACILLUS RHAMNOSUS GG 1 CAPSULE. PO SCH (08:13)
[2018-11-20] MEDS: INSULIN GLARGINE SYRINGE. SQ SCH (09:00)
[2018-11-20 11:25] VITALS: BP 144/73
--- NOTE | 2018-11-20 13:27 | DS ---
DATE OF DISCHARGE: HOSPITAL COURSE: This is a 73-year-old female patient, who was seen originally at Emergency Room of [facility] on 11/14/2018 with recurrent bouts of cough and shortness of breath. She was diagnosed with pneumonia. The patient stated that she has not been able to sleep during her cough. She also indicated that she has decreased appetite and has not eaten. She does complain of pain just below her left breast and chest wall region. She, however, denied any vomiting or diarrhea. She apparently was evaluated in the Emergency Room and her lab work showed that she has normochromic normocytic anemia. Her white cell count is normal. Her chemistry showed she has hypokalemia with potassium only 3. Her influenza A and B were negative. Her chest x-ray showed the patient's heart and mediastinal contours are stable. There is an esophageal stent in place, unchanged. She has also prominent reticular nodular markings throughout both lungs, similar to prior. She has nodular lesions at the perihilar region on the left that is unchanged. The patient has recent episode of cough that usually starts at nighttime when she goes to bed. She also has sputum that is yellowish to greenish in color. She was admitted with possible aspiration pneumonia and given that she has stricture and had difficulty swallowing, started on IV Levaquin. In the hospital, she continued to have these episodes and I did actually add steroids; however, after had a lengthy discussion with her, apparently Dr. Kenny was reluctant to put a gastrostomy tube; however, the patient and her seem to be eager to or interested in pursuing this possibility, so a decision was made to transfer her to [facility] to consult the Gastroenterology team, Surgical team and/or the interventional radiologist to see if one of them will be able to put the gastrostomy tube. PAST MEDICAL HISTORY: Significant for stage 4 lung cancer. She has esophageal stricture that was dilated 4 times and eventually underwent esophageal stent placement. She is also known to have type 2 diabetes and has extreme cachexia and emaciation. PHYSICAL EXAMINATION: GENERAL: When I saw her today, she was sitting up, eating her lunch comfortably. She continued to have episodes of cough that is distressing. She was pale, extremely cachectic with body mass index only 15.1 kilograms per square meter. There was no jaundice, cyanosis or thyromegaly. No jugular venous distention or limb edema. VITAL SIGNS: Her heart rate was 92, blood pressure was 144/73, temperature was 98, respiratory rate was 20, and oxygen saturation was 96% on room air. HEAD, EYES, EARS, NOSE AND THROAT: Showed normocephalic, atraumatic. NECK: Supple. HEART: Showed normal first and second heart sounds. No gallop or murmur. CHEST: Clear to auscultation. No crepitation, rhonchi. ABDOMEN: Scaphoid, soft, nontender. NEUROLOGIC: She is awake, alert, responding appropriately. All cranial nerves intact. She moves all extremities without difficulty. She has marked muscle wasting and weakness. LABORATORY DATA: Her lab work this morning showed a serum sodium 136, potassium 4.3, chloride 100, bicarbonate 28, anion gap of 8, BUN 4, creatinine 0.4, estimated GFR was 156 mL per minute, glucose 178, calcium was 8.5. Her white cell count was 4100, hemoglobin 11, hematocrit 33, MCV 90, and platelet count 386,000. DISCHARGE MEDICATIONS: She was discharged to transfer to [facility] to continue on Solu-Medrol 40 mg IV q. 12 hourly, fentanyl citrate 25 mcg IV every 4 hours, Lantus insulin 5 units twice a day, levofloxacin 250 mg IV daily, D5 half normal with 20 mEq of potassium IV at 75 mL per hour. FINAL DISCHARGE DIAGNOSES: Stage 4 lung cancer; esophageal stricture, status post esophageal stent placement; type 2 diabetes mellitus; severe cachexia; marked muscle wasting. RUTH PINEDA MD DR: ANTONY/charo JOB#: [id number] / [id number]
[2018-11-20 16:18] VITALS: BP 136/71
== END 2018-11-20 16:52 | disposition short-term general hospital (02) | DRG 177 ==
LOC: ER 22:51 → 1 SOUTH 11-18 00:45
PROVIDERS: ADMIT Internal Medicine; ATTEND Internal Medicine
DX: J69.0 Pneumonitis due to inhalation of food and vomit (principal); E43 Unspecified severe protein-calorie malnutrition; C34.90 Malignant neoplasm of unspecified part of unspecified bronchus or lung; J44.1 Chronic obstructive pulmonary disease with (acute) exacerbation; J44.0 Chronic obstructive pulmonary disease with (acute) lower respiratory infection; Z68.1 Body mass index [BMI] 19.9 or less, adult; K22.2 Esophageal obstruction; E87.6 Hypokalemia; E11.9 Type 2 diabetes mellitus without complications; E88.09 Other disorders of plasma-protein metabolism, not elsewhere classified; D64.9 Anemia, unspecified; K21.9 Gastro-esophageal reflux disease without esophagitis; Z80.0 Family history of malignant neoplasm of digestive organs; Z80.1 Family history of malignant neoplasm of trachea, bronchus and lung; Z82.3 Family history of stroke; Z83.3 Family history of diabetes mellitus; Z85.118 Personal history of other malignant neoplasm of bronchus and lung; Z87.891 Personal history of nicotine dependence; Z92.3 Personal history of irradiation; Z98.41 Cataract extraction status, right eye; Z98.42 Cataract extraction status, left eye; Z88.2 Allergy status to sulfonamides; Z88.8 Allergy status to other drugs, medicaments and biological substances
CPT/HCPCS: 36415; 71045; 80048; 80053; 82024; 82533; 82947; 84484; 85025; 85027; 87804; 94640; 96365; 96375; 96376; J1815; J1956; J2270; J2920; J3010; J7613; J7620; 99285-25; J7030

== ENCOUNTER 2018-12-06 23:04 | Emergency (ER) | payer MEDICARE ==
[~2018-12-06] VITALS: Ht 144.8 cm; Wt 33.5 kg
[~2018-12-06 23:04] MED LIST changes: +AMOX600S19 PO; +POLY17PO5 PO
[2018-12-07] MEDS ORDERED: IV NORMAL SALINE 500ML 500 ML IV ONE (00:15)
--- NOTE | 2018-12-07 01:04 | EKG ---
[address] [address] Test Date: 2018-12-06 Test Time: 23:17:16 Pat Name: BLANQUITA MERCADO Department: Room: Gender: F End Packer: : [id number] Requested By: MILDRED FERNANDO Order Number: [id number] Reading MD: Measurements Intervals [place] Rate: 92 P: 118 SD: 144 QRS: 110 QRSD: 126 T: 67 QT: 368 QTc: 460 Interpretive Statements SINUS RHYTHM RIGHTWARD AXIS RIGHT BUNDLE BRANCH BLOCK QRS(T) CONTOUR ABNORMALITY CONSISTENT WITH HIGH LATERAL INFARCT PROBABLY OLD ABNORMAL ECG RI6.01 No previous ECG available for comparison
[2018-12-07 01:14] LABS: ALBUMIN 2.7 g/dL (3.4-5.0); ALBUMIN/GLOBULIN RATIO 0.7 (1.0-1.7); CALCIUM 8.6 mg/dL (8.5-10.1); CREATININE 0.5 mg/dL (0.6-1.0); GFR 145.9; POTASSIUM 3.6 mmol/L (3.5-5.1); TOTAL BILIRUBIN 0.3 mg/dL (0.2-1.0); TOTAL PROTEIN 6.7 g/dL (6.4-8.2)
[2018-12-07 01:39] LABS: BASO % 1 % (0-3); EOS % 1 % (0-3); HEMATOCRIT 32.4 % (36.0-47.0); HEMOGLOBIN 10.8 g/dL (12.0-15.5); LYMPH # 0.6 x10^3/uL (1.0-4.8); LYMPH % 10 % (24-48); MEAN CORPUSCULAR HEMOGLOBIN 30 pg (25-35); MEAN CORPUSCULAR HGB CONC 33 g/dL (31-37); MEAN CORPUSCULAR VOLUME 89 fL (79-100); MONO # 0.4 x10^3/uL (0.0-1.1); MONO % 7 % (0-9); NEUT # 4.5 x10^3uL (1.8-7.7); NEUT % 82 % (31-73); PLATELET COUNT 352 x10^3/uL (140-400); RED BLOOD COUNT 3.64 x10^6/uL (3.50-5.40); RED CELL DISTRIBUTION WIDTH 16.1 % (11.5-14.5); WHITE BLOOD COUNT 5.5 x10^3/uL (4.0-11.0)
[2018-12-07 01:43] VITALS: BP 118/62
--- NOTE | 2018-12-07 02:45 | PHYS DOC ---
Past History Past Medical History: Anxiety, Cancer, Constipation, Depression, Diabetes, GERD, High Cholesterol, Hypertension, Hypothyroid, Pneumonia Past Surgical History: Other Additional Past Surgical Histo: cataracts Alcohol Use: None Drug Use: None Adult General Chief Complaint Chief Complaint: COUGH HPI HPI Patient is a 73-year-old female who is presenting essentially with the swallowing problem. She is describing a sensation of feeling like any food or water that she takes is getting stuck she can drink muscle milk a little bit about 4 ounces a day she feels a gas bubble form she has to burp she feels like it is hard to breathe due to all of that she does get some chest tightness around her ribs when all this is happening is been going on for several weeks she went to [place] they evaluated her stent they talked about a G-tube but ultimately it was decided not to do it at that time. Currently patient really is not able to the eat or drink almost anything she is down to 65 pounds she does have shortness of breath apparently she didn't episode when she tried to eat some food earlier in the day that was more severe than normal so they came to the ER for evaluation. Review of Systems Review of Systems Constitutional: Denies fever or chills [] Eyes: Denies change in visual acuity, redness, or eye pain [] HENT: Denies nasal congestion or sore throat [] Respiratory: All other systems were reviewed and found to be within normal limits, except as documented in this note. Current Medications Current Medications Current Medications Medications (Trade) Dose Ordered Sig/Emelyn Start Time Stop Time Status Last Admin Dose Admin Sodium Chloride 500 ml @ 0 mls/hr 1X ONCE 12/07/18 00:15 12/07/18 00:16 UNV 12/07/18 00:52 500 MLS/HR Allergies Allergies Allergies Coded Allergies Type Severity Reaction Last Updated Verified denosumab Allergy Severe 11/17/18 Yes clarithromycin Allergy Intermediate Itching 11/17/18 Yes sitagliptin Allergy Intermediate 11/17/18 Yes Sulfa (Sulfonamide Antibiotics) Allergy Mild Nausea and Vomiting 11/17/18 No azithromycin Allergy Mild Nausea and Vomiting 11/17/18 No methocarbamol Allergy Unknown 12/06/18 Yes Physical Exam Physical Exam Constitutional: Extremely cachectic HENT: Normocephalic, atraumatic, bilateral external ears normal, oropharynx dry no oral exudates, nose normal. [] Eyes: PERRLA, EOMI, conjunctiva normal, no discharge. [] Neck: Normal range of motion, no tenderness, supple, no stridor. [] Cardiovascular:Heart rate regular rhythm, no murmur [] Lungs & Thorax: Decreased breath sounds the left Abdomen: Bowel sounds normal, soft, no tenderness, no masses, no pulsatile masses. [] Skin: Warm, dry, no erythema, no rash. [] Back: No tenderness, no CVA tenderness. [] Extremities: No tenderness, no cyanosis, no clubbing, ROM intact, no edema. [] Of note cachexia Neurologic: Alert and oriented X 3, normal motor function, normal sensory function, no focal deficits noted. [] Psychologic: Affect normal, judgement normal, mood normal. [] Current Patient Data Vital Signs Vital Signs Date Time Temp Pulse Resp B/P (MAP) Pulse Ox O2 Delivery O2 Flow Rate FiO2 12/06/18 23:04 98.0 94 22 97 Room Air midsternal chest pain and shortness of breath starting around 2100 lasting an hour long after eating meal. pt states she had a stent placed in esophagus about 3 months ago and cough started after stent placed. "it feels like food is stuck" Distress * None Temperature (Fahrenheit): * 98.0 degrees F (97.6-99.5) Patient Temperature * 98.0 degrees F (97.5-99.5) Temperature Source * Oral Blood Pressure Systolic * 122 mm Hg (100-140) Blood Pressure Diastolic * 79 mm Hg (60-100) Blood Pressure Mean * 93 mm Hg Blood Pressure Location * Left Arm Blood Pressure Source * Automatic Cuff Pulse Rate * 94 beats per minute (60-90) H Pulse Assessment Method * Monitor Respiratory Rate * 22 breaths per minute (12-24) Oxygen Delivery Method * Room Air Lab Results Laboratory Tests Test 12/07/18 00:42 12/07/18 01:09 Sodium Level 136 mmol/L (136-145) Potassium Level 3.6 mmol/L (3.5-5.1) Chloride Level 99 mmol/L (98-107) Carbon Dioxide Level 30 mmol/L (21-32) Anion Gap 7 (6-14) Blood Urea Nitrogen 13 mg/dL (7-20) Creatinine 0.5 mg/dL (0.6-1.0) L Estimated GFR (Cockcroft-Gault) 145.9 BUN/Creatinine Ratio 26 (6-20) H Glucose Level 183 mg/dL (70-99) H Calcium Level 8.6 mg/dL (8.5-10.1) Total Bilirubin 0.3 mg/dL (0.2-1.0) Aspartate Amino Transferase (AST) 11 U/L (15-37) L Alanine Aminotransferase (ALT) 16 U/L (14-59) Alkaline Phosphatase 117 U/L (46-116) H Troponin I Quantitative < 0.017 ng/mL (0-0.055) Total Protein 6.7 g/dL (6.4-8.2) Albumin 2.7 g/dL (3.4-5.0) L Albumin/Globulin Ratio 0.7 (1.0-1.7) L Lipase 32 U/L (73-393) L White Blood Count 5.5 x10^3/uL (4.0-11.0) Red Blood Count 3.64 x10^6/uL (3.50-5.40) Hemoglobin 10.8 g/dL (12.0-15.5) L Hematocrit 32.4 % (36.0-47.0) L Mean Corpuscular Volume 89 fL (79-100) Mean Corpuscular Hemoglobin 30 pg (25-35) Mean Corpuscular Hemoglobin Concent 33 g/dL (31-37) Red Cell Distribution Width 16.1 % (11.5-14.5) H Platelet Count 352 x10^3/uL (140-400) Neutrophils (%) (Auto) 82 % (31-73) H Lymphocytes (%) (Auto) 10 % (24-48) L Monocytes (%) (Auto) 7 % (0-9) Eosinophils (%) (Auto) 1 % (0-3) Basophils (%) (Auto) 1 % (0-3) Neutrophils # (Auto) 4.5 x10^3uL (1.8-7.7) Lymphocytes # (Auto) 0.6 x10^3/uL (1.0-4.8) L Monocytes # (Auto) 0.4 x10^3/uL (0.0-1.1) Eosinophils # (Auto) 0.0 x10^3/uL (0.0-0.7) Basophils # (Auto) 0.0 x10^3/uL (0.0-0.2) EKG EKG []Normal sinus rhythm rate of 92 no acute ischemic changes noted interpreted by me time of encounter Radiology/Procedures Radiology/Procedures [] Impressions: My read there are some chronic interstitial changes I don't see an acute change compared to the most recent chest x-ray Course & Med Decision Making Course & Med Decision Making Pertinent Labs and Imaging studies reviewed. (See chart for details) []73-year-old female with a history of stage IV lung cancer as an esophageal stent basically here with persistent issues with swallowing. She has significant dysphagia she really cannot swallow almost anything she is losing weight likely her labs look pretty good chest x-ray don't see an obvious pneumonia vitals are stable in the emergency room. I recommended transfer over to [place] for continued GI consultation and talking about possibly placing a G-tube if at all feasible. Patient and say they have to go home to take care of some personal affairs involving her 2 daughters and they plan to pursue definitive treatment as soon as possible. They said they would much rather go to [place] tomorrow during the day after they make sure that their daughter who has disability is taking care of. I thought this was reasonable. At this point in time again I did offer transfer and/or admission tonight they declined they wanted to go home and they plan to present later for definitive care. Given the stability of vitals and lab work think this is reasonable Dragon Disclaimer Dragon Disclaimer This electronic medical record was generated, in whole or in part, using a voice recognition dictation system. Departure Departure: Impression: Primary Impression: Dysphagia Disposition: HOME, SELF-CARE Condition: STABLE Referrals: [facility] (PCP) Patient Instructions: Dysphagia Additional Instructions: please go to [place] when you get your affairs in order since we didnt admit you tonight as we discussed. MILDRED FERNANDO MD Dec 07, 2018 02:45
--- NOTE | 2018-12-07 04:14 | RAD ---
EXAM: CHEST ONE VIEW. HISTORY: Shortness of breath, lung cancer. COMPARISON: 11/17/2018. FINDINGS: A frontal view of the chest is obtained. Hyperinflation is consistent with chronic obstructive pulmonary disease. There are mild interstitial opacities in the right greater than left bases. There is no pneumothorax or pleural effusion. The heart is not enlarged. There are atherosclerotic calcifications of the aorta. An esophageal stent is in place. IMPRESSION: 1. Mild right greater than left basilar interstitial opacities. Correlate for aspiration. 2. Chronic obstructive pulmonary disease. Electronically signed by: Raissa Vasquez MD (12/07/2018 4:11 AM) [facility]
== END 2018-12-07 02:09 | disposition home or self-care (01) ==
LOC: ER 23:04
DX: R13.10 Dysphagia, unspecified (principal); R07.89 Other chest pain; I10 Essential (primary) hypertension; E03.9 Hypothyroidism, unspecified; Z88.1 Allergy status to other antibiotic agents; Z88.2 Allergy status to sulfonamides; Z88.8 Allergy status to other drugs, medicaments and biological substances
CPT/HCPCS: 36415; 71045; 80053; 82947; 83690; 84484; 85025; 93005; 99285; J7040

== ENCOUNTER 2018-12-17 22:48 | Emergency (ER) | payer MEDICARE ==
--- NOTE | 2018-12-17 23:13 | ED.ADGEN ---
Past History Past Medical History: Anxiety, Arthritis, Cancer, Constipation, Depression, Diabetes, GERD, High Cholesterol, Hypertension, Hypothyroid, Pneumonia Past Medical History Hx. of Radiation tx of lung cancer Past Surgical History: Other Additional Past Surgical Histo: cataracts Alcohol Use: None Drug Use: None Adult General Chief Complaint Chief Complaint " She just got discharged... from [facility]... but they did not fill her script for the sliding scale insulin.... " her blood sugars are over 300.. " HPI HPI Patient is a 73 year old female who presents with above hx and complaints she needs a sliding scale for regular insulin. Pt recent admitted to [facility]. Discharged today, but sliding scale not in the discharge paper work, so pharmacy will not fill the Insulin script. Pt to call Dr. Whitt office in the morning. Patient has somewhat extensive medical history with history of lung cancer and esophageal strictures. She had undergone radiation treatment. Patient currently getting TPN for nutritional support. Patient known diabetic, GERD, Anxiety and history of COPD. The patient is still able to tolerate some liquids by mouth. Reportedly pt. does not have hypoglycemia unawareness. Review of Systems Review of Systems Constitutional: Denies fever or chills [] Eyes: Denies change in visual acuity, redness, or eye pain [] HENT: Denies nasal congestion or sore throat [] Respiratory: Denies cough or shortness of breath [] Cardiovascular: No additional information not addressed in HPI [] GI: Denies abdominal pain, nausea, vomiting, bloody stools or diarrhea [] : Denies dysuria or hematuria [] Musculoskeletal: Denies back pain or joint pain [] Integument: Denies rash or skin lesions [] Neurologic: Denies headache, focal weakness or sensory changes [] Endocrine: Denies polyuria or polydipsia [] All other systems were reviewed and found to be within normal limits, except as documented in this note. Family History Family History Noncontributory to presentation Current Medications Current Medications Current Medications Medications (Trade) Dose Ordered Sig/Emelyn Start Time Stop Time Status Last Admin Dose Admin Heparin Sodium (Porcine) (Hep Lock Adult) 500 unit 1X ONCE 12/18/18 01:15 12/18/18 01:16 DC 12/18/18 01:14 500 UNIT Insulin Human Regular (HumuLIN R VIAL) 2 unit 1X ONCE 12/18/18 01:15 12/18/18 01:16 DC 12/18/18 01:08 2 UNIT Sodium Chloride 1,000 ml @ 1,000 mls/hr 1X ONCE 12/17/18 23:30 12/18/18 00:29 DC 12/17/18 23:29 1,000 MLS/HR See nursing for home meds Allergies Allergies Allergies Coded Allergies Type Severity Reaction Last Updated Verified denosumab Allergy Severe 11/17/18 Yes clarithromycin Allergy Intermediate Itching 11/17/18 Yes sitagliptin Allergy Intermediate 11/17/18 Yes Sulfa (Sulfonamide Antibiotics) Allergy Mild Nausea and Vomiting 11/17/18 No azithromycin Allergy Mild Nausea and Vomiting 11/17/18 No methocarbamol Allergy Unknown 12/06/18 Yes Physical Exam Physical Exam Constitutional: no acute distress,ill in appearance, muscle wasting, obviously malnourished. [] HENT: Normocephalic, atraumatic, bilateral external ears normal, oropharynx moist, no oral exudates, nose normal. [] Eyes: PERRLA, EOMI, conjunctiva normal, no discharge. [] Neck: Normal range of motion, no tenderness, supple, no stridor. [] Cardiovascular: Tachycardia Heart rate regular rhythm, no murmur []PMI to the left Lungs & Thorax: Bilateral breath sounds equal at apex with scattered wheezes throughout. Does have a port. Does have radiation kovacs. Abdomen: Bowel sounds normal, soft, no tenderness, no masses, no pulsatile masses. Scar. Skin: Warm, dry, no erythema, no rash. Poor turgor Back: No tenderness, no CVA tenderness. [] Kyphosis Extremities: No tenderness, no cyanosis, no clubbing, ROM intact, no edema. [] Arthritic changes muscle wasting Neurologic: Alert and oriented X 3, moves all extremities on request. Does have increased sensory lower limbs, no new focal deficits noted. [] Psychologic: Affect anxious, judgement normal, mood depressed. Current Patient Data Lab Results Laboratory Tests Test 12/17/18 23:02 Glucose (Fingerstick) 330 mg/dL (70-99) H EKG EKG [] Radiology/Procedures Radiology/Procedures [] Course & Med Decision Making Course & Med Decision Making Pertinent Labs and Imaging studies reviewed. (See chart for details) Call office in the morning to make arrangement for Sliding scale. Keep record of glucose levels. Must continue feedings. The sliding-scale night will need adjustments based on patient's sensitivity or resistance to insulin and Medical condition. Check glucose 4 x day and record levels to show to Dr. Whitt and or Pat[facility]. [] Final Impression Final Impression 1. DM -Hyperglycemia 2. Malnutrition 3. Lung cancer 4. Esophageal stricture 5. History of COPD 6. History of HTN Dragon Disclaimer Dragon Disclaimer This electronic medical record was generated, in whole or in part, using a voice recognition dictation system. Dragon Disclaimer This chart was dictated in whole or in part using Voice Recognition software in a busy, high-work load, and often noisy Emergency Department environment. It may contain unintended and wholly unrecognized errors or omissions. RADHA STANFORD MD Dec 17, 2018 23:13
[2018-12-17] MEDS ORDERED: IV NORMAL SALINE 1,000ML 1,000 ML IV ONE (23:30)
[2018-12-17] MEDS ORDERED: INSULIN REGULAR 100 UNIT/ML 3ML VIAL. IV ONE (23:30)
[2018-12-18 00:29] VITALS: BP 148/64
[2018-12-18] MEDS ORDERED: INSU100V SQ (01:00)
[2018-12-18] MEDS ORDERED: INSULIN REGULAR 100 UNIT/ML 3ML VIAL. IV ONE ×2 (01:15)
[2018-12-18] MEDS ORDERED: HEPARIN PF 500 UNIT/5 ML DISP.SYRIN. IVP ONE (01:15)
[2018-12-26] MEDS ORDERED: LORA-254 IV (15:22)
[2018-12-26] MEDS ORDERED: HYDR4TAB PO (15:22)
[2018-12-26] MEDS ORDERED: SCOP1PAT11 TP (15:22)
== END 2018-12-18 01:20 | disposition home or self-care (01) ==
LOC: ER 22:48
DX: E11.65 Type 2 diabetes mellitus with hyperglycemia (principal); E46 Unspecified protein-calorie malnutrition; K22.2 Esophageal obstruction; J44.9 Chronic obstructive pulmonary disease, unspecified; I10 Essential (primary) hypertension; M19.90 Unspecified osteoarthritis, unspecified site; K21.9 Gastro-esophageal reflux disease without esophagitis; E78.00 Pure hypercholesterolemia, unspecified; E03.9 Hypothyroidism, unspecified; Z68.33 Body mass index [BMI] 33.0-33.9, adult; Z85.9 Personal history of malignant neoplasm, unspecified; Z88.1 Allergy status to other antibiotic agents; Z88.2 Allergy status to sulfonamides; Z88.8 Allergy status to other drugs, medicaments and biological substances
CPT/HCPCS: 82947; 96361; 96374; 96375; 96376; 99284; J1815; J7030

== ENCOUNTER → 2018-12-19 | Outpatient (CLI) | payer MEDICARE ==
[2018-12-18 00:29] VITALS: BP 148/64
[~2018-12-19] MED LIST changes: +INSU100V SQ
[2018-12-19 14:17] LABS: BASO % 1 % (0-3); EOS % 0 % (0-3); LYMPH # 0.5 x10^3/uL (1.0-4.8); LYMPH % 7 % (24-48); MEAN CORPUSCULAR HEMOGLOBIN 29 pg (25-35); MEAN CORPUSCULAR HGB CONC 32 g/dL (31-37); MEAN CORPUSCULAR VOLUME 89 fL (79-100); MONO # 0.6 x10^3/uL (0.0-1.1); MONO % 8 % (0-9); NEUT % 84 % (31-73); PLATELET COUNT 342 x10^3/uL (140-400); RED BLOOD COUNT 3.46 x10^6/uL (3.50-5.40); RED CELL DISTRIBUTION WIDTH 16.3 % (11.5-14.5); WHITE BLOOD COUNT 7.1 x10^3/uL (4.0-11.0)
[2018-12-19 14:22] LABS: ALBUMIN 2.3 g/dL (3.4-5.0); ALBUMIN/GLOBULIN RATIO 0.6 (1.0-1.7); CALCIUM 8.5 mg/dL (8.5-10.1); CREATININE 0.4 mg/dL (0.6-1.0); GFR 188.8; MAGNESIUM 1.9 mg/dL (1.8-2.4); POTASSIUM 3.9 mmol/L (3.5-5.1); TOTAL BILIRUBIN 0.3 mg/dL (0.2-1.0); TOTAL PROTEIN 6.2 g/dL (6.4-8.2)
== END | disposition home or self-care (01) ==
LOC: SPEC 13:16
PROVIDERS: ATTEND Internal Medicine
DX: E11.9 Type 2 diabetes mellitus without complications (principal); R13.14 Dysphagia, pharyngoesophageal phase; D64.9 Anemia, unspecified; K22.2 Esophageal obstruction
CPT/HCPCS: 36415; 80053; 83735; 84100; 85025

== ENCOUNTER 2018-12-22 12:31 | Inpatient (IN) | payer MEDICARE ==
[2018-12-22] VITALS (8 sets, daily range): BP systolic 107–127; BP diastolic 40–58
[~2018-12-22] VITALS: Ht 152.4 cm; Wt 33.1 kg
[2018-12-22] MEDS ORDERED: IV NORMAL SALINE 1,000ML 1,000 ML IV ONE (12:45)
--- NOTE | 2018-12-22 13:07 | PHYS DOC ---
Past History Past Medical History: Anxiety, Arthritis, Cancer, Constipation, Depression, Diabetes, GERD, High Cholesterol, Hypertension, Hypothyroid, Pneumonia Additional Past Medical Histor: lung cancer Past Surgical History: Other Additional Past Surgical Histo: cataracts Alcohol Use: None Drug Use: None Adult General Chief Complaint Chief Complaint: HYPOTENSION HPI HPI 73-year-old female presenting the emergency department today after having low blood pressures this morning. Her is here with her today and states that her blood pressure was in the 60s systolic and then came up to the 80s on the next try. She did before her blood pressure was down had taken 10 mg of hydrocodone and placed a fentanyl patch on. She felt mildly lightheaded when she had the low blood pressure but otherwise denies any pain at the time and currently is feeling much better. Onset today. Location generalized. Duration intermittent. No alleviating or exacerbating factors present. Review of systems is negative for chest pain shortness of breath abdominal pain vomiting. She has had TPN infusions for malnutrition and low oral intake. She denies fevers or dysuria. All other review of systems is negative. ED course: 73-year-old female presenting with low blood pressure seeming to be related to her pain medications based on the timing. Here her blood pressure is in the 100 systolic range and she is feeling much better. Chest x-ray blood work EKG obtained. EKG shows sinus rhythm. Similar to previous. Not suggestive of ACS. No peaking T waves. Blood work shows mild leukocytosis. Mild anemia. Chemistry panel shows hyperkalemia at 6.1. Hyponatremia at 125. Hyperglycemia 545. No signs of acidosis. Albumin is extremely low. Troponin within normal limits. X-ray shows bibasilar infiltrates. The patient was given IV Rocephin here in the emergency department along with a bolus of IV fluids. We'll admit the patient to the intensive care unit. I spoke with Dr. Osorio who accepts patient for admission. Current Medications Current Medications Current Medications Medications (Trade) Dose Ordered Sig/Emelyn Start Time Stop Time Status Last Admin Dose Admin Sodium Chloride 1,000 ml @ 1,000 mls/hr 1X ONCE 12/22/18 12:45 12/22/18 13:44 Allergies Allergies Allergies Coded Allergies Type Severity Reaction Last Updated Verified denosumab Allergy Severe 11/17/18 Yes clarithromycin Allergy Intermediate Itching 11/17/18 Yes sitagliptin Allergy Intermediate 11/17/18 Yes Sulfa (Sulfonamide Antibiotics) Allergy Mild Nausea and Vomiting 11/17/18 No azithromycin Allergy Mild Nausea and Vomiting 11/17/18 No methocarbamol Allergy Unknown 12/06/18 Yes Physical Exam Physical Exam Constitutional: Well developed, well nourished, no acute distress, non-toxic appearance. [] HENT: Normocephalic, atraumatic, bilateral external ears normal, oropharynx moist, no oral exudates, nose normal. [] Eyes: PERRLA, EOMI, conjunctiva normal, no discharge. [] Neck: Normal range of motion, no tenderness, supple, no stridor. [] Cardiovascular:Heart rate regular rhythm, no murmur [] Lungs & Thorax: Bilateral breath sounds clear to auscultation [] Abdomen: Bowel sounds normal, soft, no tenderness, no masses, no pulsatile masses. [] Skin: Warm, dry, no erythema, no rash. [] Back: No tenderness, no CVA tenderness. [] Extremities: No tenderness, no cyanosis, no clubbing, ROM intact, no edema. [] Neurologic: Alert and oriented X 3, normal motor function, normal sensory function, no focal deficits noted. [] Psychologic: Affect normal, judgement normal, mood normal. [] EKG EKG [] Radiology/Procedures Radiology/Procedures [] Course & Med Decision Making Course & Med Decision Making Pertinent Labs and Imaging studies reviewed. (See chart for details) [] Dragon Disclaimer Dragon Disclaimer This electronic medical record was generated, in whole or in part, using a voice recognition dictation system. Departure Departure: Impression: Primary Impression: Low blood pressure reading Additional Impressions: Infiltrate of lung present on imaging of chest Hyperkalemia Hyponatremia Hyperglycemia Disposition: ADMITTED INPATIENT Condition: STABLE Referrals: [facility] (PCP) Patient Instructions: Hypotension, [id number] Additional Instructions: Thank you for allowing us to participate in your care today. Return to the emergency department you have any new or worsening symptoms, or if you are concerned for any reason. Return to emergency department if you have any new or concerning symptoms including but not limited to fever, chills, nausea, vomiting, intractable pain, any new rashes, chest pain, shortness of air, uncontrolled bleeding, difficulty breathing, and/or vision loss. Follow up with your primary care physician within 1-2 days. Call your Primary Doctor tomorrow and inform them of your visit today. If you do not have a primary care provider we are happy to provide you with a list of our primary care providers contact information. This condition should be evaluated by your primary care physician and any recommended consulting services for continued management within 2 days after discharge. If at any time, you are having difficulty getting into your primary care doctor or a specialist, return to the emergency department. Critical Care Time Critical care time spent was 45 minutes exclusive of procedures. Time was spent evaluating the patient, ordering the administration of medications, reevaluating the patient, discussing with the admitting provider and documenting. Problem Qualifiers ANKITA DE JESUS MD Dec 22, 2018 13:07
--- NOTE | 2018-12-22 13:57 | RAD ---
Exam performed: One view chest HISTORY: Low blood pressure. DATE OF SERVICE: 12/22/2018. COMPARISON: One view chest from 12/06/2018. Single AP upright portable view chest findings: Heart size and mediastinal silhouette is within limits of normal. There is esophageal stent in place. A central vascular catheter is seen in the left terminating at the atriocaval junction. Interval development of diffuse airspace opacities in the right lung base and to a lesser extent in the left lung base. There is no pleural effusion or pneumothorax. IMPRESSION: Interval development of bibasilar infiltrates, greater on the right. Electronically signed by: Judy Claros MD (12/22/2018 1:53 PM) [facility]
[2018-12-22] MEDS ORDERED: cefTRIAXone SODIUM 1 GM VIAL ONE (14:39)
[2018-12-22] MEDS ORDERED: IV NORMAL SALINE 50ML 50 ML ONE (14:39)
[2018-12-22] MEDS ORDERED: INSULIN REGULAR 100 UNIT/ML 3ML VIAL. IV ONE (14:45)
[2018-12-22 14:53] LABS: BACTERIA,URINE 0 /HPF (0-FEW); BILIRUBIN,URINE NEG (NEG); CLARITY,URINE HAZY; COLOR,URINE YELLOW; GLUCOSE,URINE 100 mg/dL (NEG); NITRITE,URINE NEG (NEG); RBC,URINE 0 /HPF (0-2); SQUAMOUS EPITHELIAL CELL,UR OCC /LPF; UROBILINOGEN,URINE 0.2 mg/dL (0.2 mg/dL)
[2018-12-22] MEDS ORDERED: DEXTROSE 50% 25 GM / 50ML DISP.SYRIN. IV PRN ×2 (15:15→17:15)
[2018-12-22] MEDS ORDERED: INSULIN REGULAR VIAL 150 UNIT in 0.9 % SODIUM CHLORIDE 150ML 150 ML IV PRN (15:15)
[2018-12-22] MEDS ORDERED: SODIUM BICARB ADULT 8.4% 50 MEQ/50 ML DISP.SYRIN. IV ONE (15:15)
[2018-12-22] MEDS ORDERED: CALCIUM GLUCONATE 1,000 MG/10 ML VIAL IV ONE (15:30)
[2018-12-22] MEDS ORDERED: FENT-73 TP (15:59)
[2018-12-22] MEDS ORDERED: ALTEPLASE 2 MG VIAL INT CAT ONE (17:45)
[2018-12-22 18:01] LABS: CREATININE 0.4 mg/dL (0.6-1.0); GFR 188.8; POTASSIUM 3.5 mmol/L (3.5-5.1)
[2018-12-22] MEDS: ALBUTEROL SULFATE 2.5 MG/3 ML NEBU. NEB SCH (20:35)
--- NOTE | 2018-12-22 22:36 | EKG ---
[address] [address] Test Date: 2018-12-22 Test Time: 13:11:54 Pat Name: BLANQUITA MERCADO Department: Room: Gender: F Diver Assistant: : 1945 Requested By: ANKITA DE JESUS Order Number: [id number] Reading MD: Measurements Intervals [place]ister Rate: 90 P: 41 NV: 140 QRS: 99 QRSD: 124 T: 65 QT: 346 QTc: 427 Interpretive Statements SINUS RHYTHM RIGHTWARD AXIS RIGHT BUNDLE BRANCH BLOCK ABNORMAL ECG RI6.01 No previous ECG available for comparison
[2018-12-23] VITALS (25 sets, daily range): BP systolic 62–129; BP diastolic 31–66
[2018-12-23] MEDS: ALBUTEROL SULFATE 2.5 MG/3 ML NEBU. NEB SCH ×3 (04:59→21:09)
[2018-12-23 07:00] LABS: BASO % 0 % (0-3); EOS % 0 % (0-3); HEMATOCRIT 29.9 % (36.0-47.0); HEMOGLOBIN 9.7 g/dL (12.0-15.5); LYMPH # 0.4 x10^3/uL (1.0-4.8); LYMPH % 4 % (24-48); MEAN CORPUSCULAR HEMOGLOBIN 29 pg (25-35); MEAN CORPUSCULAR HGB CONC 33 g/dL (31-37); MEAN CORPUSCULAR VOLUME 89 fL (79-100); MONO # 0.4 x10^3/uL (0.0-1.1); MONO % 4 % (0-9); NEUT # 8.5 x10^3uL (1.8-7.7); NEUT % 92 % (31-73); PLATELET COUNT 372 x10^3/uL (140-400); RED BLOOD COUNT 3.35 x10^6/uL (3.50-5.40); RED CELL DISTRIBUTION WIDTH 16.5 % (11.5-14.5); WHITE BLOOD COUNT 9.3 x10^3/uL (4.0-11.0)
[2018-12-23 07:05] LABS: ALBUMIN 1.8 g/dL (3.4-5.0); ALBUMIN/GLOBULIN RATIO 0.5 (1.0-1.7); CALCIUM 8.4 mg/dL (8.5-10.1); CREATININE 0.5 mg/dL (0.6-1.0); GFR 145.9; MAGNESIUM 1.6 mg/dL (1.8-2.4); PHOSPHORUS 2.8 mg/dL (2.6-4.7); POTASSIUM 3.8 mmol/L (3.5-5.1); TOTAL BILIRUBIN 0.3 mg/dL (0.2-1.0); TOTAL PROTEIN 5.7 g/dL (6.4-8.2)
[2018-12-23] MEDS: INSULIN LISPRO 300 UNITS/3 ML VIAL. SQ SCH ×3 (08:02→17:17)
[2018-12-23] MEDS ORDERED: CYANOCOBALAMIN (VITAMIN B-12) 1,000 MCG/ML VIAL IM SCH (09:00)
[2018-12-23] MEDS ORDERED: MAGNESIUM HYDROXIDE 2,400 MG/30 ML ORAL.SUSP. PO PRN (10:30)
[2018-12-23] MEDS ORDERED: DEXTROSE ORAL GEL 15 GM TUBE. PO PRN (12:00)
--- NOTE | 2018-12-23 12:56 | HP ---
ADMIT DATE: 12/22/2018 HISTORY OF PRESENT ILLNESS: The patient is a 73-year-old female patient with a stage IIIB lung cancer and severe esophageal stricture that required esophageal stent. She has severe dysphagia due to esophageal dysfunction and she was started on TPN about 7 days ago and she was brought to the Emergency Room yesterday by her because of hypertension. Apparently her blood pressure at home was in the 60s systolic, then it came up to 80s in the next try. She did take 10 mg of hydrocodone and placed a fentanyl patch on her skin. She felt mildly lightheaded when she had the low blood pressure, but otherwise denies any pain. By the time she arrived to the Emergency Room, she felt much better. In fact by the time she arrived to the Emergency Room, her blood pressure was in the 100 systolic range, is feeling much better. She has had a chest x-ray, EKG and lab work done. Her EKG showed that she was in sinus rhythm, similar to previous. No suggestion of acute coronary syndrome and no peaking of T waves. Her lab work showed that she has mild leukocytosis, mild anemia and her chemistry showed that she has hyperkalemia with serum potassium 6.1, hyponatremia at 125. Her blood sugar was high at 545. No signs of acidosis. She has severe hypoalbuminemia. Troponin was within normal limit. X-ray showed bibasilar infiltrate. She was started on IV Rocephin in the Emergency Department along with a bolus of IV fluid and was admitted to Intensive Care Unit for further evaluation and treatment. PAST MEDICAL HISTORY: Significant for stage 3B lung cancer. She has esophageal stricture that was dilated 4 times and eventually underwent an esophageal stent placement. She is also known to have type 2 diabetes mellitus and obviously chronic obstructive pulmonary disease. PAST SURGICAL HISTORY: Significant for bilateral cataract extraction, esophageal stricture, dilatation times 4 and esophageal stent placement, most recently placement of Bard PICC line tunneled under the skin to the left internal jugular vein for home TPN. ALLERGIES: SHE IS ALLERGIC TO SULFA, AZITHROMYCIN, CLARITHROMYCIN, SITAGLIPTIN WELL DENOSUMAB. FAMILY HISTORY: She has 1 older brother who has diabetes, hypertension, chronic kidney disease and has 3 sisters, one older and 2 younger, all of them have diabetes. One of them has lung cancer. Her father at the age of 86 because of stomach cancer. Mother at age of 68 because of CVA and diabetes. SOCIAL HISTORY: She has 2 sons and 2 daughters from her previous marriage. With her current , they have adopted a child. She is an ex-smoker, quit about a year ago. She smoked almost 40 years. She does not drink alcohol or use any recreational drugs. 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 MEDICATIONS: She is currently on following medications: She is on fentanyl 12 mcg per hour topically q. 73 hours. She is on hydrocodone/APAP 7.5/325 in 10 mL solution and can take 5-10 mL p.o. p.r.n. every 6 hours. She is on Humalog as per insulin sliding scale and she is also on Lantus insulin. She has also vitamin B12 1000 mcg/1 mL intramuscular once a month. PHYSICAL EXAMINATION: GENERAL: On arrival to the Emergency Room, she was initially currently hypertensive, pale, cachectic, but no jaundice, cyanosis, or thyromegaly. No jugular venous distention. No limb edema. VITAL SIGNS: Her heart rate was 96, blood pressure was 109/43, temperature was 98.2, respiratory rate was 18 and oxygen saturation was 95%. HEAD, EYES, EARS, NOSE AND THROAT: Showed normocephalic, atraumatic. NECK: Supple. HEART: Showed normal first and second heart sounds with no gallop, rub or murmur. CHEST: Clear to auscultation. No crepitation or rhonchi. ABDOMEN: Distended, soft, nontender. No guarding or rigidity. No organomegaly. All hernial orifice intact. Bowel sounds normal. NEUROLOGIC: She apparently was awake, alert, responding appropriately. All her cranial nerves intact. EXTREMITIES: She moves extremities without difficulty. LABORATORY DATA: On admission showed that her white cell count was 9300, hemoglobin 9.7, hematocrit 30, MCV 89 and platelet count 372,000 with normal manual differential. Her initial chemistry showed a serum sodium of 125 and extremely high glucose of 545. She was given 10 units of insulin in the Emergency Room and was admitted today. She did receive also 1 gram of IV ceftriaxone and received also 1 amp of sodium bicarbonate, calcium gluconate and 10 units of regular insulin together with a liter of normal saline and was admitted to Intensive Care Unit to monitor her blood sugars closely. ASSESSMENT AND PLAN: In summary, this is a 73-year-old female patient with past medical history significant for stage 3B lung cancer. She also has severe esophageal stricture dilated 4 times and eventually ended up with esophageal stent. She continued to have severe dysphagia due to esophageal dysfunction and was admitted due to hypotension. She did have some abnormal electrolytes. Some of them are probably due to the fact that she had lab drawn without stopping her TPN; however, subsequent lab work drawn from the peripheral IV showed that her serum sodium was 136, potassium 3.5, chloride 99, bicarbonate 32, BUN 11, creatinine 0.4, estimated GFR was 188, glucose was 50 and calcium was 9. PLAN: To continue with TPN, continue to monitor her blood sugar and use low dose sliding scale. Continued pain management. RUTH PINEDA MD DR: ANTONY/charo JOB#: [id number] / [id number]
[2018-12-23 13:14] LABS: LACTATE DEHYDROGENASE 144 U/L (81-234); LIPASE 20 U/L (73-393)
[2018-12-23] MEDS ORDERED: IV NORMAL SALINE 1,000ML 1,000 ML IV ONE (13:15)
--- NOTE | 2018-12-23 16:30 | PN ---
DATE: 12/23/2018 SUBJECTIVE: The patient is resting slightly propped up in bed, in no apparent respiratory distress. She is awake, alert, continued to complain of chest pain and abdominal pain. Her blood pressure continued to be borderline. OBJECTIVE: GENERAL: When I examined her, she looked pale, cachectic, but no jaundice, cyanosis or thyromegaly. No jugular venous distension. No lower limb edema. VITAL SIGNS: Her heart rate was 90, blood pressure was 86/36, temperature was 97, respiratory rate was 16, and oxygen saturation was 95%. HEAD, EYES, EARS, NOSE AND THROAT: Showed normocephalic, atraumatic. NECK: Supple. HEART: Showed normal first and second heart sounds. No gallop or murmur. CHEST: Clear to auscultation. She has bilateral basal crepitation. ABDOMEN: Scaphoid, soft, nontender. NEUROLOGIC: She is awake, alert, responding appropriately. All cranial nerves intact. She moves all extremities without difficulty. Her intake over the last 24 hours was 1015, output was recorded. LABORATORY DATA: Her lab work this morning showed a serum sodium 126, potassium 3.8, chloride 92, bicarbonate 29, anion gap of 5, BUN 11, creatinine 0.5, estimated GFR was 145 mL per minute. Her glucose was 348, calcium was 8.4, phosphorus 2.8, magnesium was 1.6. Total bilirubin, AST, ALT were normal. Alkaline phosphatase slightly elevated. Total protein was 5.7, albumin was 1.8. Urinalysis was unremarkable. ASSESSMENT: Hypertension. The cause of which is not clear to me. The patient is extremely cachectic. Her body mass index only 14 kilograms square meter and may be at least in part artifactually lower because of the pressure cuff. She has hyponatremia, although all other lab works are fine. She has mild normochromic normocytic anemia. Her white cell count and platelets are normal. PLAN: My plan is to repeat her labs again, adding lactic acid and decide on further management accordingly. RUTH PINEDA MD DR: ANTONY/charo JOB#: [id number] / [id number]
[2018-12-24] VITALS (22 sets, daily range): BP systolic 67–118; BP diastolic 38–62
[2018-12-24] MEDS: ALBUTEROL SULFATE 2.5 MG/3 ML NEBU. NEB SCH ×4 (05:57→21:44)
[2018-12-24 06:40] LABS: ALBUMIN 1.7 g/dL (3.4-5.0); ALBUMIN/GLOBULIN RATIO 0.4 (1.0-1.7); CALCIUM 8.3 mg/dL (8.5-10.1); CREATININE 0.4 mg/dL (0.6-1.0); GFR 188.8; HEMATOCRIT 30.3 % (36.0-47.0); POTASSIUM 3.8 mmol/L (3.5-5.1); RED BLOOD COUNT 3.43 x10^6/uL (3.50-5.40); RED CELL DISTRIBUTION WIDTH 16.2 % (11.5-14.5); TOTAL BILIRUBIN 0.2 mg/dL (0.2-1.0); TOTAL PROTEIN 5.9 g/dL (6.4-8.2)
[2018-12-24] MEDS: INSULIN LISPRO 300 UNITS/3 ML VIAL. SQ SCH ×3 (08:15→17:00)
[2018-12-24] MEDS ORDERED: WATER IV SCH ×10 (09:00)
[2018-12-24] MEDS ORDERED: AMINO ACID IV SCH ×10 (09:00)
[2018-12-24] MEDS ORDERED: [UNRECOGNIZED DRUG - OTHER] IV SCH ×10 (09:00)
[2018-12-24] MEDS ORDERED: DEXTROSE 50% IV SCH ×10 (09:00)
[2018-12-24] MEDS ORDERED: TOTAL PARENTERAL NUTRITION IV SCH ×10 (09:00)
[2018-12-24] MEDS ORDERED: MAGNESIUM HYDROXIDE 2,400 MG/30 ML ORAL.SUSP. PO ONE (13:00)
[2018-12-25] VITALS (11 sets, daily range): BP systolic 85–115; BP diastolic 36–52
--- NOTE | 2018-12-25 03:18 | PN ---
DATE: 12/24/2018 SUBJECTIVE: The patient is sitting slightly propped up in bed, in no apparent respiratory distress. She and her have made a decision to go for hospice. Apparently, they had a discussion with Dr. Nowak and Dr. Pearce, and basically, she is not a candidate for PEG tube placement and there are no further options for her in terms of treatment for her cancer. She is in a lot of pain and she now has been getting the IV fentanyl up to 50 mg every 2 hours, and still, she is having pain, and therefore, they will have a meeting tomorrow with different hospices and will decide to choose one of them. I feel that is the right decision to make. PHYSICAL EXAMINATION: GENERAL: When I examined her this afternoon, she looked pale, cachectic, but no jaundice, cyanosis, or thyromegaly. No jugular venous distention. No limb edema. VITAL SIGNS: Her heart rate was 99, blood pressure was 102/62, temperature was 97, respiratory rate was 18 and oxygen saturation was 93% on 2 liters of oxygen. The rest of clinical exam is stable, has not changed. LABORATORY DATA: Her lab work showed a white cell count 9000, hemoglobin 10, hematocrit 30, MCV 88 and platelet count of 119,000. Her chemistry showed a serum sodium of 129, potassium 3.8, chloride 93, bicarbonate 28, anion gap of 8, BUN 10, creatinine 0.4, estimated GFR was 188 mL per minute. Glucose was 149, calcium was 8.3. Total bilirubin, AST, ALT normal. Alkaline phosphatase slightly elevated. Total protein was 5.7. Albumin was 1.7. ASSESSMENT: 1. Stage 3B lung cancer. 2. Hypertension has resolved. 3. Severe cachexia with body mass index only 14 kilograms. 4. Dilutional hyponatremia. 5. Severe esophageal stricture dilated 4 times and now has esophageal stent. PLAN: To obviously await the outcome of discussion ____ will be the pain control as she is having difficulty, was unable to tolerate the Roxanol, might have to experiment with liquid form of oxycodone and hydromorphone. RUTH PINEDA MD DR: ANTONY/charo JOB#: [id number] / [id number]
[2018-12-25] MEDS: ALBUTEROL SULFATE 2.5 MG/3 ML NEBU. NEB SCH ×4 (05:47→20:00)
[2018-12-25 06:13] LABS: HEMATOCRIT 29.9 % (36.0-47.0); HEMOGLOBIN 9.6 g/dL (12.0-15.5); RED BLOOD COUNT 3.35 x10^6/uL (3.50-5.40); RED CELL DISTRIBUTION WIDTH 16.4 % (11.5-14.5); WHITE BLOOD COUNT 9.2 x10^3/uL (4.0-11.0)
[2018-12-25 06:27] LABS: ALBUMIN 1.7 g/dL (3.4-5.0); ALBUMIN/GLOBULIN RATIO 0.4 (1.0-1.7); CALCIUM 8.2 mg/dL (8.5-10.1); CREATININE 0.4 mg/dL (0.6-1.0); GFR 188.8; POTASSIUM 3.9 mmol/L (3.5-5.1); TOTAL BILIRUBIN 0.3 mg/dL (0.2-1.0); TOTAL PROTEIN 5.8 g/dL (6.4-8.2)
[2018-12-25] MEDS: INSULIN LISPRO 300 UNITS/3 ML VIAL. SQ SCH ×3 (08:00→17:00)
[2018-12-25] MEDS ORDERED: MORPHINE SULFATE 2 MG/ML DISP.SYRIN. ONE (08:59)
[2018-12-25] MEDS ORDERED: MORPHINE SULFATE 2 MG/ML DISP.SYRIN. IV PRN (09:00)
[2018-12-25] MEDS ORDERED: FAT EMULSIONS 20% IV ONE (09:00)
[2018-12-25] MEDS ORDERED: fentaNYL 12MCG/HR 1 PATCH PATCH TD SCH (09:00)
[2018-12-25] MEDS ORDERED: SCOPOLAMINE 1.5MG PATCH. TD SCH (13:00)
[2018-12-25] MEDS: HYDROmorphone PF 1 MG/ML DISP.SYRIN IV PRN ×3 (13:00→23:57)
[2018-12-25] MEDS ORDERED: DEXTROSE 50% IV SCH ×10 (20:00)
[2018-12-25] MEDS ORDERED: TOTAL PARENTERAL NUTRITION IV SCH ×10 (20:00)
[2018-12-25] MEDS ORDERED: AMINO ACID IV SCH ×10 (20:00)
[2018-12-25] MEDS ORDERED: [UNRECOGNIZED DRUG - OTHER] IV SCH ×10 (20:00)
[2018-12-25] MEDS ORDERED: WATER IV SCH ×10 (20:00)
[2018-12-26] MEDS: ALBUTEROL SULFATE 2.5 MG/3 ML NEBU. NEB SCH ×2 (05:47→09:36)
[2018-12-26 06:15] VITALS: BP 116/46
[2018-12-26] MEDS: HYDROmorphone PF 1 MG/ML DISP.SYRIN IV PRN ×5 (06:15→15:08)
[2018-12-26] MEDS: INSULIN LISPRO 300 UNITS/3 ML VIAL. SQ SCH ×2 (07:51→12:00)
--- NOTE | 2018-12-26 11:44 | PN ---
DATE: 12/25/2018 SUBJECTIVE: The patient is sitting on the edge of the bed comfortably in no apparent distress. Her pain is much better controlled with IV morphine. She has episodes of anxiety and sometimes has difficulty burping and that is what sets her anxiety. PHYSICAL EXAMINATION: GENERAL: When I examined her, however, she looked pale and cachectic. No jaundice, cyanosis, or thyromegaly. No jugular venous distension. No limb edema. VITAL SIGNS: Her heart rate was 90, blood pressure was 86/44, temperature was 97, respiratory rate was 18, and oxygen saturation was 90% on 2 liters of oxygen. HEAD, EYES, EARS, NOSE, AND THROAT: Showed normocephalic and atraumatic. NECK: Supple. HEART: Showed normal first and second heart sounds. No gallop or murmur. CHEST: Clear to auscultation. No crepitation or rhonchi. ABDOMEN: Scaphoid, soft, and nontender. No guarding. No rigidity. No organomegaly. All hernial orifices are intact and bowel sounds are normal. NEUROLOGIC: She is awake, alert, and responding appropriately. All cranial nerves are intact. She moves extremities without difficulty. Her intake over the last 24 hours and output incompletely recorded. LABORATORY DATA: Her lab work this morning showed a white cell count 9200, hemoglobin 9.6, hematocrit 29.9, MCV 89, and platelet count of 392,000. Her chemistry showed a serum sodium 130, potassium 3.9, chloride 93, bicarbonate 30, anion gap of 7, BUN 10, and creatinine 0.4. Estimated GFR was 188 mL per minute. Her glucose was 352 and calcium was 8.2. Total bilirubin, AST, and ALT are normal. Alkaline phosphatase was elevated. Total protein of 5.8 and albumin is 1.7. ASSESSMENT: 1. Stage 3B lung cancer. The patient has no other therapeutic options and she and her have opted for the hospice care. 2. Hypertension, is somewhat better today. 3. Esophageal dysfunction. 4. Recurrent aspiration pneumonia. 5. Severe cachexia with the body mass index only 14 kilograms per square meter. 6. Dilutional hyponatremia. The patient and her are discussing ____ which one of them is better one to choose. PLAN: We will try scopolamine patch as well as Ativan to see how she responds to it and eventually, she would be probably discharged home on a continuous morphine infusion, scopolamine patch, and maybe atropine drops together with Ativan gel and/or Ativan intravenously. RUTH PINEDA MD DR: ANTONY/charo JOB#: [id number] / [id number]
[2018-12-26] MEDS ORDERED: LORA-254 IV (15:22)
[2018-12-26] MEDS ORDERED: SCOP1PAT11 TP (15:22)
[2018-12-26] MEDS ORDERED: HYDR4TAB PO (15:22)
--- NOTE | 2018-12-26 15:26 | DISCH ---
DISCHARGE ORDERS DISCHARGE DATE: Dec 26, 2018 FINAL DIAGNOSIS metastatic lung cancer esophgeal stricture esophageal dysfunction cachexia CONDITION AT DISCHARGE: Stable Code Status: DNR/DNI HOSPICE: Yes HOSPICE EVALUATE & TREAT: Yes POST DISCHARGE ORDERS: ACTIVITY ORDERS: No restrictions WEIGHT BEARING STATUS: Other, see below DIET AFTER DISCHARGE: CHECKS AFTER DISCHARGE: CHECKS AFTER DISCHARGE: Check blood press - daily, Check blood sugar, ac/hs DISCHARGE MEDICATIONS: Home Meds Active Scripts Scopolamine (TRANSDERM-SCOP) 1 Each Patch.td72, 1 PATCH TP Q3DAYS for secretion for 10 Days, #10 PATCH Prov:RUTH PINEDA MD 12/26/18 Lorazepam (ATIVAN) 1 Mg Tablet, 1 MG IV Q2H for anxiety, #30 TAB Prov:RUTH PINEDA MD 12/26/18 Hydromorphone Hcl (HYDROMORPHONE HCL) 4 Mg Tablet, 1 TAB PO Q2HR for end of life care, #120 TAB Prov:RUTH PINEDA MD 12/26/18 Insulin Lispro (HUMALOG) 100 Unit/1 Ml Vial, 100 UNIT SQ DAILY06 for diabetes, #120 EACH Prov:RADHA STANFORD MD 12/18/18 Cyanocobalamin (Vitamin B-12) (CYANOCOBALAMIN INJECTION) 1,000 Mcg/1 Ml Vial, 1 ML IM QMONTH, #1 VIAL 3 Refills Prov:RUTH PINEDA MD 09/06/15 Reported Medications Fentanyl (FENTANYL 12mcg/hr) 1 Each Patch.td72, 1 PATCH TP Q3DAYS for pain, #10 PATCH 12/22/18 Discontinued Reported Medications Polyethylene Glycol 3350 (MIRALAX) 17 Gm Powd.pack, 17 GM PO DAILY for constipation, PKT 11/17/18 Discontinued Scripts Hydrocodone Bit/Acetaminophen (HYDROCODONE-APAP 7.5-325/15 SOLN ) 15 Ml Solution, 5-10 ML PO PRN Q6HRS PRN for PAIN, #120 ML 0 Refills Prov:MACKENZIE CHRIS Jr. DO 09/14/18 RUTH PINEDA MD Dec 26, 2018 15:26
--- NOTE | 2018-12-26 23:04 | DS ---
DATE OF DISCHARGE: 12/26/2018 HOSPITAL COURSE: The patient is a 73-year-old female patient with the advanced lung cancer, esophageal stricture, esophageal dysfunction, severe cachexia, and chronic pain syndrome. She was admitted initially because of hypertension and possible aspiration pneumonia. She was started on IV antibiotic, given IV fluid and given her severe pain, she and her decided to go on for hospice care and was discharged to inpatient hospice care. PHYSICAL EXAMINATION: GENERAL: When I saw her this afternoon, she was resting slightly propped up in bed, in no apparent distress. She was in agonal breathing, pale, cachectic, no jaundice, cyanosis or thyromegaly. No jugular venous distension. No limb edema. VITAL SIGNS: Her heart rate was 79, blood pressure was 70/50, temperature was 98, respiratory rate was 8, and the oxygen saturation was 79% on 4 liters of oxygen by nasal cannula. HEAD, EYES, EARS, NOSE, AND THROAT: Showed is normocephalic and atraumatic. NECK: Supple. HEART: Showed normal first and second heart sounds. No gallop or murmur. CHEST: Clear to auscultation. No crepitation or rhonchi. ABDOMEN: Scaphoid, soft, and nontender. NEUROLOGIC: She was encephalopathic. DISCHARGE MEDICATIONS: The patient was discharged to inpatient hospice care to continue on hydromorphone 1 mg IV every 2 hours, lorazepam 1 mg IV every 2 hours, scopolamine patch at 1.5 mg topically q. 72 hours. Continue with oxygen as needed and fentanyl 12 mcg per hour topically every 72 hours. FINAL DISCHARGE DIAGNOSES: Metastatic lung cancer, esophageal stricture requiring esophageal stent, esophageal dysfunction, recurrent aspiration pneumonia, severe weight loss and marked cachexia, and chronic pain syndrome. RUTH PINEDA MD DR: ANTONY/charo JOB#: [id number] / [id number]
== END 2018-12-26 15:20 | disposition short-term general hospital (02) | DRG 177 ==
LOC: ER 12:31 → ICU 14:52
PROVIDERS: ADMIT Internal Medicine; ATTEND Internal Medicine
DX: J69.0 Pneumonitis due to inhalation of food and vomit (principal); E43 Unspecified severe protein-calorie malnutrition; C34.90 Malignant neoplasm of unspecified part of unspecified bronchus or lung; E87.1 Hypo-osmolality and hyponatremia; R64 Cachexia; Z68.1 Body mass index [BMI] 19.9 or less, adult; R13.14 Dysphagia, pharyngoesophageal phase; I95.9 Hypotension, unspecified; I10 Essential (primary) hypertension; D64.9 Anemia, unspecified; F41.9 Anxiety disorder, unspecified; M19.90 Unspecified osteoarthritis, unspecified site; F32.9 Major depressive disorder, single episode, unspecified; K21.9 Gastro-esophageal reflux disease without esophagitis; E78.00 Pure hypercholesterolemia, unspecified; J44.9 Chronic obstructive pulmonary disease, unspecified; Z51.5 Encounter for palliative care; G89.4 Chronic pain syndrome; E03.9 Hypothyroidism, unspecified; E11.65 Type 2 diabetes mellitus with hyperglycemia; Z88.2 Allergy status to sulfonamides; Z88.8 Allergy status to other drugs, medicaments and biological substances; Z98.41 Cataract extraction status, right eye; Z98.42 Cataract extraction status, left eye; Z82.3 Family history of stroke; Z83.3 Family history of diabetes mellitus; Z80.1 Family history of malignant neoplasm of trachea, bronchus and lung; Z80.0 Family history of malignant neoplasm of digestive organs; Z87.891 Personal history of nicotine dependence
CPT/HCPCS: 36415; 71045; 80048; 80053; 81001; 82947; 83605; 83615; 83690; 83735; 84100; 85025; 85027; 87086; 93005; 94640; 94760; 96361; 96365; 96375; J0610; J0696; J1170; J1815; J2060; J2270; J2997; J3010; J3420; J3475; J3490; J7613; 99291-25; J7030

== ENCOUNTER 2018-12-26 15:17 | Inpatient (IN) | payer MEDICARE, OTHER ==
[2018-12-26 06:15] VITALS: BP 116/46
[~2018-12-26 15:17] MED LIST changes: +FENT-73 TP
[2018-12-26] MEDS ORDERED: LORA-254 IV (15:22)
[2018-12-26] MEDS ORDERED: HYDR4TAB PO (15:22)
[2018-12-26] MEDS ORDERED: SCOP1PAT11 TP (15:22)
[2018-12-26] MEDS ORDERED: HYDROmorphone PF 1 MG/ML DISP.SYRIN IV SCH ×2 (16:00→17:00)
--- NOTE | 2018-12-26 16:13 | DS ---
DATE OF DISCHARGE: HOSPITAL COURSE: The patient is a 73-year-old female patient with advanced lung cancer with esophageal stricture that was dilated 4 times in the esophageal stent. She has had a PICC line, was started on TPN; however, she continued to have severe pain that required intravenous pain medication and she and her decided to go on hospice care and therefore we started her on hydromorphone 1 mg IV every 2 hours, Ativan 1 mg IV every 2 hours together with scopolamine and a decision was made to discharge her for inpatient hospice care when I saw her today. DICTATION ENDS HERE RUTH PINEDA MD DR: ANTONY/charo JOB#: [id number] / [id number]
[2018-12-26] MEDS ORDERED: BISACODYL 10 MG SUPP.RECT PR PRN (16:15)
[2018-12-28] MEDS ORDERED: SCOPOLAMINE 1.5MG PATCH. TD SCH (09:00)
== END 2018-12-26 19:22 | disposition expired | DRG 182 ==
LOC: 1 SOUTH 15:17
PROVIDERS: ADMIT Internal Medicine; ATTEND Internal Medicine
DX: C34.90 Malignant neoplasm of unspecified part of unspecified bronchus or lung (principal); K22.2 Esophageal obstruction; Z51.5 Encounter for palliative care
CPT/HCPCS: J2060; Q5005